=== PATIENT | female | born 1950 | race Caucasian/White ===

== ENCOUNTER 2016-10-28 13:48 | Emergency (ER) | payer OTHER ==
[~2016-10-28] VITALS: Ht 157.5 cm; Wt 93.0 kg
[~2016-10-28 13:48] MED LIST: ASPIRIN EC81 MG PO; CITALOPRAM HBR20 MG PO; DOXYCYCLINE HY100 MG PO; HYDROCODON-ACE1 EA10 PO; LIDODERM700 MG TOP; MULTI-DAY VITA1 EACH PO; OMEPRAZOLE20 MG PO; PREVACID30 MG PO; VITAMIN C500 M1 PO; VITAMIN D400 UNI1 PO; ZOFRAN ODT4 MG PO
--- NOTE | 2016-10-28 20:40 | EKG ---
[facility] [address] [facility] [place] [address] Signed Normal sinus rhythm Normal ECG No previous ECGs available Confirmed by JEN CEBALLOS MD ([id number]) on 10/28/2016 8:40:05 PM Electronically Signed By: JEN CEBALLOS MD 10/28/160 PATIENT NAME: Tati RAYMUNDO TERE Electrocardiogram DATE OF : 50 PHYSICIAN: JEN CEBALLOS MD REPORT #: [id number] REPORT IS CONFIDENTIAL AND NOT TO BE RELEASED WITHOUT AUTHORIZATION
== END 2016-10-28 17:10 | disposition home or self-care (01) ==
LOC: ED 13:48
DX: J06.9 Acute upper respiratory infection, unspecified (principal); Z85.3 Personal history of malignant neoplasm of breast; Z90.710 Acquired absence of both cervix and uterus; Z90.49 Acquired absence of other specified parts of digestive tract; Z90.89 Acquired absence of other organs; Z88.0 Allergy status to penicillin; Z88.1 Allergy status to other antibiotic agents; Z88.5 Allergy status to narcotic agent; Z88.8 Allergy status to other drugs, medicaments and biological substances; Z79.899 Other long term (current) drug therapy
CPT/HCPCS: 71020; 81001; 85025; 87088; 93005; 93010; 99284

== ENCOUNTER 2016-12-29 01:15 | Emergency (ER) | payer OTHER ==
[~2016-12-29] VITALS: Ht 157.5 cm; Wt 91.2 kg
[2016-12-29] MEDS ORDERED: DOXYCYCLINE HY100 MG PO (01:43)
== END 2016-12-29 02:30 | disposition home or self-care (01) ==
LOC: ED 01:15
DX: L02.415 Cutaneous abscess of right lower limb (principal); Z85.3 Personal history of malignant neoplasm of breast; Z85.038 Personal history of other malignant neoplasm of large intestine; Z90.49 Acquired absence of other specified parts of digestive tract; Z98.890 Other specified postprocedural states; Z88.0 Allergy status to penicillin; Z88.5 Allergy status to narcotic agent; Z79.899 Other long term (current) drug therapy
CPT/HCPCS: 99283

== ENCOUNTER 2017-04-16 20:48 | Emergency (ER) | payer OTHER ==
[~2017-04-16] VITALS: Ht 157.5 cm; Wt 91.2 kg
== END 2017-04-16 21:41 | disposition home or self-care (01) ==
LOC: ED 20:48
DX: S29.012A Strain of muscle and tendon of back wall of thorax, initial encounter (principal); Z85.3 Personal history of malignant neoplasm of breast; Z90.49 Acquired absence of other specified parts of digestive tract; Z90.710 Acquired absence of both cervix and uterus; Z90.89 Acquired absence of other organs; Z91.018 Allergy to other foods; Z88.5 Allergy status to narcotic agent; Z88.8 Allergy status to other drugs, medicaments and biological substances; Z79.899 Other long term (current) drug therapy; Z85.038 Personal history of other malignant neoplasm of large intestine; X50.0XXA Overexertion from strenuous movement or load, initial encounter
CPT/HCPCS: 71101; 99283

== ENCOUNTER 2018-07-20 06:41 | Emergency (ER) | payer OTHER ==
[~2018-07-20] VITALS: Ht 157.5 cm; Wt 93.9 kg
--- OUTSIDE RECORDS SUMMARY | ~2018-07-20 | XMS | Clinical Summary ---
Demographics + + + | Address | [address] | | | [place] [address] | + + + | Home Phone | | + + + | Preferred Language | Unknown | + + + | Marital Status | | + + + | Adventism Affiliation | Unknown | + + + | Race | Unknown | + + + | Ethnic Group | Unknown | + + + Author + + + | Author | [facility] | | | and Miguelana | + + + | Organization | [facility] | | | and Miguelana | + + + | Address | Unknown | + + + | Phone | Unavailable | + + + Support + + + + + | Name | Relationship | Address | Phone | + + + + + | Clarence Dixon | ECON | Unknown | | + + + + + | Chadwick Dixon | ECON | [address] | | | | | [place] | | | | | [address] | | + + + + + Care Team Providers + +------+ + | Care Assistant Professor Of Archaeology Name | Role | Phone | + +------+ + PP | Unavailable | + +------+ + Allergies + + + +--------+ + | Active Allergy | Reactions | Severity | Noted | Comments | | | | | Date | | + + + +--------+ + | Codeine Sulfate | | | | | + + + +--------+ + | Erythromycin Base | | | | | + + + +--------+ + | Food | | | | | + + + +--------+ + | Morphine Sulfate | | | | | + + + +--------+ + | Penicillin V | | | | | | Potassium | | | | | + + + +--------+ + | Pseudoephedrine | | | | | + + + +--------+ + | Trazodone Hcl | | | | | + + + +--------+ + | Triazolam | | | | | + + + +--------+ + | Triprolidine-Pse | | | | | + + + +--------+ + Medications + + + +---------+------+------+-------+ | Medication | Sig | Dispensed | Refills | Star | End | Statu | | | | | | t | Date | s | | | | | | Date | | | + + + +---------+------+------+-------+ | zolpidem (AMBIEN) | Take 10 mg by mouth | | 0 | 09/1 | | Activ | | 10 mg tablet | nightly as needed. | | | 3/20 | | e | | | | | | 12 | | | + + + +---------+------+------+-------+ | calcium-vitamin D | 1and1/2 tablets | | 0 | 09/1 | | Activ | | 600-400 MG-UNIT TABS | daily | | | 3/20 | | e | | | | | | 12 | | | + + + +---------+------+------+-------+ | citalopram | Take 20 mg by mouth | | 0 | 09/1 | | Activ | | (CELEXA) 20 mg | Daily. | | | 3/20 | | e | | tablet | | | | 12 | | | + + + +---------+------+------+-------+ | lansoprazole | 2 capsules daily | | 0 | 09/1 | | Activ | | (PREVACID) [address] | | | | 3/20 | | e | | capsule | | | | 12 | | | + + + +---------+------+------+-------+ | aspirin (ADULT | | | 0 | 09/1 | | Activ | | ASPIRIN EC LOW | | | | 3/20 | | e | | STRENGTH) 81 MG EC | | | | 12 | | | | tablet | | | | | | | + + + +---------+------+------+-------+ | colestipol | 2 tablets daily | | 0 | 09/1 | | Activ | | (COLESTID) 1 g | | | | 3/20 | | e | | tablet | | | | 12 | | | + + + +---------+------+------+-------+ | multivitamin | | | 0 | 09/1 | | Activ | | (THERAGRAN) per | | | | 3/20 | | e | | tablet | | | | 12 | | | + + + +---------+------+------+-------+ | | TABS | | 0 | 09/1 | | Activ | | Glucosamine-Chondroi | | | | 3/20 | | e | | tin (OSTEO BI-FLEX | | | | 12 | | | | REGULAR STRENGTH PO) | | | | | | | + + + +---------+------+------+-------+ | gabapentin | Take one cap at | | 0 | 10/2 | | Activ | | (NEURONTIN) 300 mg | bedtime for 5 days. | | | 10/24 | | e | | capsule | Increase to 3 times | | | 11 | | | | | daily as tolerated. | | | | | | + + + +---------+------+------+-------+ Active Problems + + + | Problem | Noted Date | + + + | NECK PAIN | 01/02/2011 | + + + | BACK PAIN, THORACIC REGION | 01/02/2011 | + + + | BACK PAIN, LUMBAR | 01/02/2011 | + + + | INJURY TO CUTANEOUS SENSORY NERVE LOWER LIMB | 01/02/2011 | + + + | PES ANSERINUS BURSITIS | | + + + | NECK SPRAIN AND STRAIN | | + + + | LUMBAR SPRAIN AND STRAIN | | + + + | SPONDYLOSIS, THORACIC | | + + + + + | Overview: ICD-10 Record update | + + + +---+ | KNEE PAIN | | + +---+ | DISC DISEASE, LUMBAR | | + +---+ | THORACIC/LUMBOSACRAL NEURITIS/RADICULITIS UNSPEC | | + +---+ Social History + +-------+ +--------+------+ | Tobacco Use | Types | Packs/Day | Years | Date | | | | | Used | | + +-------+ +--------+------+ | Never Assessed | | | | | + +-------+ +--------+------+ + + + | Sex Assigned at | Date Recorded | | | | + + + | Not on file | | + + + + + + + | Job Start Date | Occupation | Industry | + + + + | Not on file | Not on file | Not on file | + + + + + + + + | Travel History | Travel Start | Travel End | + + + + + + | No recent travel history available. | + + Last Filed Vital Signs + + + + | Vital Sign | Reading | Time Taken | + + + + | Blood Pressure | 122/90 | 11/08/2010 0000 PDT | + + + + | Pulse | - | - | + + + + | Temperature | - | - | + + + + | Respiratory Rate | - | - | + + + + | Oxygen Saturation | - | - | + + + + | Inhaled Oxygen | - | - | | Concentration | | | + + + + | Weight | 93 kg (205 lb) | 01/02/2011 0000 PDT | + + + + | Height | 153.7 cm (5' 0.5") | 11/08/2010 0000 PDT | + + + + | Body Mass Index | 39.38 | 11/08/2010 PDT | + + + + Plan of Treatment + + + + + | Health Maintenance | Due Date | Last Done | Comments | + + + + + | Vaccine: | | | | | Dtap/Tdap/Td (1 - | 0 | | | | Tdap) | | | | + + + + + | Vaccine: Zoster (1 | | | | | of 2) | 1 | | | + + + + + | Vaccine: | | | | | Pneumococcal 65+ | 6 | | | | Low/Medium Risk (1 | | | | | of 2 - PCV13) | | | | + + + + + | Vaccine: Influenza | | | | | (Season Ended) | 9 | | | + + + + + Results Not on filefrom Last 3 Months Insurance + +--------+ +--------+-------+---------+--------+ | Payer | Benefi | Subscriber | Effect | Phone | Address | Type | | | t Plan | ID | bobby | | | | | | / | | Dates | | | | | | Group | | | | | | + +--------+ +--------+-------+---------+--------+ | [employer] | MODA | [id number] | | | | Medica | | | HEALTH | | 014-Pr | | | re | | | MDCR | | esent | | | | + +--------+ +--------+-------+---------+--------+ + +--------+ +--------+ + + | Guarantor Name | Accoun | Relation to | Date | Phone | Billing Address | | | t Type | Patient | of | | | | | | | | | | + +--------+ +--------+ + + | Tati Nazario [place] | Person | Self | [birth year] | [address] | | | al/Fam | | 1 | [phone] | [place] [address] | | | scar | | | 4 (Home) | | + +--------+ +--------+ + +
--- OUTSIDE RECORDS SUMMARY | ~2018-07-20 | XMS | Clinical Summary ---
Demographics + + + | Address | [address] | | | [place] [address] | + + + | Home Phone | | + + + | Preferred Language | Unknown | + + + | Marital Status | | + + + | Mormon Affiliation | Unknown | + + + | Race | White | + + + | Ethnic Group | Not or | + + + Author + + + | Author | [facility] | + + + | Organization | [facility] | + + + | Address | Unknown | + + + | Phone | Unavailable | + + + Support + + + + + | Name | Relationship | Address | Phone | + + + + + | Tati Sage | ECON | [address] | | | [place] | | [place] | | | | | [address] | | + + + + + Care Team Providers + +------+ + | Care Instrument And Control Service Person Name | Role | Phone | + +------+ + PP | Unavailable | + +------+ + Source Comments [facility] and [facility] InPatient.[facility] Allergies + + + + + + | Active Allergy | Reactions | Severity | Noted | Comments | | | | | Date | | + + + + + + | Diphenhydramine-Pseu | | | 10/31/19 | | | doephed | | | 11 | | + + + + + + | Codeine | | | 10/31/19 | | | | | | 11 | | + + + + + + | Erythromycin | | | 07/28/18 | RASH | | | | | 93 | | + + + + + + | Morphine | | | 10/31/19 | | | | | | 11 | | + + + + + + | Penicillins | | | 07/28/18 | RASH | | | | | 93 | | + + + + + + | Naproxen-Pseudoephed | | | 10/31/19 | | | rine | | | 11 | | + + + + + + Current Medications + + +-------+---------+------+------+-------+ | Prescription | Sig. | Disp. | Refills | Star | End | Statu | | | | | | t | Date | s | | | | | | Date | | | + + +-------+---------+------+------+-------+ | aspirin EC | Take 81 mg by mouth | | | | | Activ | | (ASPIR-81) 81 mg | once daily. | | | | | e | | Oral Tablet, Delayed | | | | | | | | Release (E.C.) | | | | | | | + + +-------+---------+------+------+-------+ | LANSOPRAZOLE | Take by mouth. | | | | | Activ | | (PREVACID ORAL) | | | | | | e | + + +-------+---------+------+------+-------+ | ZOLPIDEM TARTRATE | Take by mouth as | | | | | Activ | | (AMBIEN ORAL) | needed. | | | | | e | + + +-------+---------+------+------+-------+ | gabapentin 100 mg | Take 100 mg by mouth | | | | | Activ | | Oral Capsule | every four hours. | | | | | e | + + +-------+---------+------+------+-------+ | MEDICATION HELP | Patient is taking | | | | | Activ | | | Hydrocodone 125 mg | | | | | e | | | every 4 hours, | | | | | | + + +-------+---------+------+------+-------+ Active Problems + + + | Problem | Noted Date | + + + | Left hip pain | 04/03/2011 | + + + | Macular puckering of retina, left eye | 11/04/2010 | + + + Family History + + +------+ + | Medical History | Relation | Name | Comments | + + +------+ + | Macular degeneration | Mother | | | + + +------+ + | Retinal detachment | Sister | | | + + +------+ + + +------+--------+ + | Relation | Name | Status | Comments | + +------+--------+ + | Mother | | | | + +------+--------+ + | Sister | | | | + +------+--------+ + Social History + +-------+ +--------+------+ | Tobacco Use | Types | Packs/Day | Years | Date | | | | | Used | | + +-------+ +--------+------+ | Never Smoker | | | | | + +-------+ +--------+------+ + +---+---+---+ | Smokeless Tobacco: | | | | | Never Used | | | | + +---+---+---+ + + + | Sex Assigned at | Date Recorded | | | | + + + | Not on file | | + + + Last Filed Vital Signs + + + + | Vital Sign | Reading | Time Taken | + + + + | Blood Pressure | 132/78 | 04/03/2011 10:45 AM PST | + + + + | Pulse | 95 | 04/03/2011 10:45 AM PST | + + + + | Temperature | 36.8 C (98.2 F) | 04/03/2011 10:45 AM PST | + + + + | Respiratory Rate | - | - | + + + + | Oxygen Saturation | - | - | + + + + | Inhaled Oxygen | - | - | | Concentration | | | + + + + | Weight | 103.9 kg (229 lb) | 04/03/2011 10:45 AM PST | + + + + | Height | 154.9 cm (5' 1") | 04/03/2011 10:45 AM PST | + + + + | Body Mass Index | 43.27 | 04/03/2011 10:45 AM PST | + + + + Plan of Treatment + + + + + | Health Maintenance | Due Date | Last Done | Comments | + + + + + | Pneumococcal (Adult) | | | | | (1 of 2 - PCV13) | 6 | | | + + + + + | Influenza (Flu) | | | | | vaccination (#1) | 8 | | | + + + + + Results Not on filefrom Last 3 Months Insurance + +--------+ +------+ + + | Payer | Benefi | Subscriber | Type | Phone | Address | | | t Plan | ID | | | | | | / | | | | | | | Group | | | | | + +--------+ +------+ + + | [employer] [place] | BLUE | [phone] | PPO | [phone] [address] [phone] [place] | | | CROSS | | | [phone] | [place] [address] | | | [employer]ER[employer] | | | | | | | L | | | | | + +--------+ +------+ + + + +--------+ +--------+ + + | Guarantor Name | Accoun | Relation to | Date | Phone | Billing Address | | | t Type | Patient | of | | | | | | | | | | + +--------+ +--------+ + + | Tati SAGE | Person | Self | [birth year] | Home: | [address] [place] [address] | | | al/Fam | | 1 | [phone] | [place] [address] | | | scar | | | [phone] | | + +--------+ +--------+ + +
--- OUTSIDE RECORDS SUMMARY | ~2018-07-20 | XMS | Clinical Summary ---
Demographics + + + | Address | [address] | | | [place] [address] | + + + | Home Phone | | + + + | Preferred Language | Unknown | + + + | Marital Status | | + + + | Pentecostalism Affiliation | Unknown | + + + [...] | Tati Sage | ECON | [address] | | | [place] | | [place] | | | | | [address] | | + + + + + Care Team Providers + +------+ + | Care Vacuum Cleaner Assembler Name | Role | Phone | + +------+ + PP | Unavailable | + +------+ + Source Comments [facility] and [facility] InPatient.[facility] Allergies + + + + + [...] | BLUE | [phone] | PPO | [phone] [address] [phone] [place] | | | CROSS | | | [phone] | [place] [address] | | | [place] | | | [...] | Self | [birth year] | Home: | [address] [place] [address] | | | al/Fam | | 1 | [phone] | [place] [address] | | | scar | | | [phone] | | + +--------+ +--------+ + +
--- OUTSIDE RECORDS SUMMARY | ~2018-07-20 | XMS | Clinical Summary ---
Demographics + + + | Address | [address] | | | [place] [address] | + + + | Home Phone | | + + + | Preferred Language | Unknown | + + + | Marital Status | | + + + | Buddhism Affiliation | Unknown | + + + | Race | Unknown | + + + | Ethnic Group | Unknown | + + + Author + + + | Author | [facility] | | | and Miguelana | + + + | Organization | [facility] | | | and Miguelana | [...] [place] | | | | | [address] | | + + + + + Care Team Providers + +------+ + | Care Charter Pilot Name | Role | Phone | + [...] | [employer] | MODA | [id number] | | | | Medica | | [...] | 1 | [phone] | [place] [address] | | | scar | | | 4 (Home) | | + +--------+ +--------+ + +
[2018-07-20] MEDS ORDERED: AMBIEN10 MG PO (07:01)
[2018-07-20] MEDS ORDERED: MUCINEX600 MG PO (07:03)
[2018-07-20] MEDS ORDERED: PROAIR HFA8.5 GM INH (07:53)
[2018-07-20] MEDS ORDERED: PREDNISONE20 MG PO (07:53)
[2018-07-20] MEDS ORDERED: DOXYCYCLINE HY100 MG PO (07:53)
[2018-07-20] MEDS ORDERED: TESSALON PERLE100 MG PO (07:53)
== END 2018-07-20 08:10 | disposition home or self-care (01) ==
LOC: ED 06:41
DX: J40 Bronchitis, not specified as acute or chronic (principal); Z88.0 Allergy status to penicillin; Z88.1 Allergy status to other antibiotic agents; Z88.5 Allergy status to narcotic agent; Z91.018 Allergy to other foods; Z79.899 Other long term (current) drug therapy; Z79.891 Long term (current) use of opiate analgesic
CPT/HCPCS: 71046; 94640; 99283-25; J1100

== ENCOUNTER 2019-10-25 05:30 | Day surgery (SDC) | payer OTHER ==
--- NOTE | 2019-10-19 17:28 | NUR ---
PATIENT SEEN TODAY ON 10/19/19 FOR LEFT TOTAL KNEE WITH HILARIA SCHEDULED ON 10/25/19. PATIENT REPORTS SHE LIVES ALONE IN A SINGLE STORY HOUSE WITH NO STAIRS INSIDE HOME. REPORTS [address] STAIR INTO HOME WITHOUT RAIL. PATIENT REPORTS SHE DOES NOT HAVE FWW OR SHOWER CHAIR, [employer] PAMPHLET AND LOAN AGREEMENT PAPERWORK PROVIDED. PATIENT STATES SHE WILL F/U WITH [employer] FOR ITEMS, ADVISED TO BRING IN FWW ON DAY OF PROCEDURE, PATIENT VERBALIZED UNDERSTANDING. PAIENT REPORTS HAVING TUB/SHOWER COMBO WITH HAND BAR AND HAND-HELD SHOWER HEAD. PATIENT STATES SHE HAD JOINT BOOT CAMP TODAY AND [facility] OUTPATIENT P/T AND HAS FIRST F/U APPOINTMENT ON 10/31 @3666. DECLINES NEED FOR HOME HEALTH OR TRANSPORATION ASSISTANCE. STATES SON WILL STAY WITH HER DURING RECOVERY PHASE AND PROVIDE TRANSPORTATION. PATIENT STATES SON AND FRIENDS WILL CONTINUE TO CHECK ON HER DURING THE FOLLOWING WEEKS OF RECOVERY.
[~2019-10-25] VITALS: Ht 157.5 cm; Wt 93.4 kg
[~2019-10-25 05:30] MED LIST changes: +AMBIEN10 MG PO; +LANSOPRAZOLE15 MG PO; +MUCINEX600 MG PO; +PREDNISONE20 MG PO; +PROAIR HFA8.5 GM INH; +TESSALON PERLE100 MG PO
[2019-10-25] MEDS ORDERED: CELECOXIB200 MG PO (08:48)
[2019-10-25] MEDS ORDERED: ASPIRIN EC325 MG PO (08:48)
[2019-10-25] MEDS ORDERED: SENNA LAX8.6 MG PO (08:49)
[2019-10-25] MEDS ORDERED: GABAPENTIN600 MG PO (08:49)
[2019-10-25] MEDS ORDERED: OXYCODONE HCL5 MG PO (08:49)
--- NOTE | 2019-10-25 09:03 | NUR ---
10/25/19 0903 Gabriel Mendoza HOB DOWN AND IVF ELEVATED AND OPEN AFTER FIRST BLOOD PRESSURE. CUFF ADJUSTED AFTER SECOND BP AND READINGS CHANGED SIGNIFICANTLY.
--- NOTE | 2019-10-25 11:55 | NUR ---
1140-HOURLY ASSESSMENT COMPLETE. PT REPORTS DECREASE IN NAUSEA AND FRESH WATER AND CRACKERS PROVIDED. PT'S SIGNIFICANT OTHER AT BEDSIDE. VSS. PT REPORTS TOLERABLE PAIN LEVEL AND REPORTS NUMBNESS AND TINGLING IN LOWER EXTREMITIES BELOW THE KNEES. POLAR ICE MACHINE ON. ARIANNA HOSE AND SCDS ON. CALL LIGHT WITHIN REACH
--- NOTE | 2019-10-25 12:17 | OR ---
[facility] [address] [place], [place] [address] Signed DATE OF OPERATION: 10/25/2019 SURGEON: Pio Lee MD PREOPERATIVE DIAGNOSIS: Degenerative joint disease, left knee. POSTOPERATIVE DIAGNOSIS: Degenerative joint disease, left knee. PROCEDURE PERFORMED: Left total knee arthroplasty with Yunier. LIMOUSINE AND HEARSE UPHOLSTERER: Nguyen Becker PA-C. Nguyen was present, critical for all portions of the procedure. ANESTHESIA: Spinal. BLOOD LOSS: 200 mL. TOURNIQUET TIME: Zero. IMPLANTS: [place] Triathlon size 3, 9 mm poly and a 29 mm patella. BRIEF HISTORY: Tati Pantoja is a 69-year-old female with progressive worsening of pain in her knee. Arthroscopy injections bracing had not relieved her pain and she wished to proceed with knee replacement. Risks and benefits of operative treatment were discussed with her and she elected to proceed. DESCRIPTION OF PROCEDURE: Once consent was obtained, she was taken to the operating room after adequate anesthesia. She was placed on operating room table, all downside pressure points were well padded. The left leg was prepped and draped in a standard sterile fashion. The leg was approached through standard anterior incision, taken through skin and Electronically Signed By: PIO LEE MD 10/25/19 1217 PATIENT NAME: Tati RAYMUNDO OPERATIVE REPORT DATE OF : 50 REPORT #: [id number] PHYSICIAN: PIO LEE MD PCP: EDITH JOSÉ MD REPORT IS CONFIDENTIAL AND NOT TO BE RELEASED WITHOUT AUTHORIZATION [facility] [address] [place], [place] [address] Signed subcutaneous tissue. A subvastus approach was taken through the capsule. The capsule and synovium were then mobilized. The knee was flexed after elevating the MCL around to the posteromedial corner. We also removed the fat pad. The anterior horns of menisci were transected, the ACL was transected. The PCL was found to be intact. The checkpoints were then placed in the femur and the tibia for the Yunier. The femoral array was then placed intra-articular. The tibial array was then placed one handsbreadth above the tibial tuberosity. The leg was then registered with the computer. All checkpoints were then registered inside the knee. The sizing configuration ligament balance was all checked using the computer and the implant. The implant tension was then adjusted. Once this was accomplished, the Yunier robot was brought in and the robot was registered. Once this was accomplished, the straight cuts were made and then switched to the angle blade and the last two cuts were made. Care was taken to protect the soft tissue throughout. Once this was accomplished, the bone pieces were all removed and the remaining osteophytes were removed. The trials were then positioned and the knee was taken through range of motion and found to be stable. The patella was cut, sized and drilled for 29 mm patella. The femoral drill holes were made and the tibia was finished using the keel punch. Her bone quality was relatively poor, so we elected to give with a hybrid implant system. The components were obtained and the tibial bone surface was pulse lavaged and packed with dry Ray-Rosita. Cement was mixed and it reached to proper consistency, it was placed on the tibia and the patella. Tibia was impacted in position first. All excess cement was removed. The polyethylene was then snapped into position and the femur was impacted. The knee was extended and nicely loaded. The patella was clamped into position again any remaining overflow was removed. The cement was allowed to harden and once hardened sufficiently, the knee was flexed and remaining overflow was removed using osteotomes. The flexion-extension ligament balancing was found to be quite good. The Yunier computer rays were then removed as were the checkpoints. The periarticular soft tissue was injected with 100 mL ropivacaine and Toradol mixture. The knee was pulse lavaged at intervals total of 3 L normal saline and iodine were used. The On-Q pain pump was then placed percutaneously in the adductor canal from the suprapatellar pouch. The arthrotomy was then closed using #2 Stratafix, subcutaneous tissue with #1 Stratafix, and the skin with ivelisse. She was dressed with a JUSTINA wound VAC dressing and Bill wrap. She tolerated the procedure well. All sponge, needle, and instrument counts were correct. Pio Lee MD BA/MODL /[id number] Electronically Signed By: PIO LEE MD 10/25/19 1217 PATIENT NAME: Tati RAYMUNDO OPERATIVE REPORT DATE OF : 50 REPORT #: [id number] PHYSICIAN: PIO LEE MD PCP: EDITH JOSÉ MD REPORT IS CONFIDENTIAL AND NOT TO BE RELEASED WITHOUT AUTHORIZATION [address] [address] Signed Copies: ~ Electronically Signed By: PIO LEE MD 10/25/19 1217 PATIENT NAME: Tati RAYMUNDO TERE OPERATIVE REPORT DATE OF : 50 REPORT #: [id number] PHYSICIAN: PIO LEE MD PCP: EDITH JOSÉ MD REPORT IS CONFIDENTIAL AND NOT TO BE RELEASED WITHOUT AUTHORIZATION
--- NOTE | 2019-10-25 13:31 | NUR ---
PT HAS GONE TO OR, FAMILY REMAIN IN RM. CONNECTED THINGS SEEM TO BE FINE. UPDATED ON VISITATION POLICY. GAVE BLESSING WILL FOLLOW
--- NOTE | 2019-10-25 14:18 | NUR ---
1000) educated on how to use IS. 1400) 2 PHYSICAL THERAPY STAFF IN ROOM WITH PATIENT
--- NOTE | 2019-10-25 14:48 | NUR ---
1415) UP TO BEDSIDE COMODE WITH HELP OF PT. 800MLS OUT. 1430)VITALS NOT DONE, PATIENT IS OFF UNIT WITH PT.
== END 2019-10-25 15:50 | disposition home or self-care (01) ==
LOC: DS 05:30
PROVIDERS: Specialist
PROC: 8E0YXBZ Computer Assisted Procedure of Lower Extremity (ICD-10-PCS; 2019-10-25)
PROC: 0SRD0J9 Replacement of Left Knee Joint with Synthetic Substitute, Cemented, Open Approach (ICD-10-PCS; principal; 2019-10-25 06:45)
DX: M16.12 Unilateral primary osteoarthritis, left hip (principal); F32.9 Major depressive disorder, single episode, unspecified; F41.9 Anxiety disorder, unspecified; K21.9 Gastro-esophageal reflux disease without esophagitis; G47.00 Insomnia, unspecified; Z79.899 Other long term (current) drug therapy; Z88.5 Allergy status to narcotic agent; Z88.0 Allergy status to penicillin; Z88.2 Allergy status to sulfonamides; Z88.1 Allergy status to other antibiotic agents; Z88.8 Allergy status to other drugs, medicaments and biological substances
CPT/HCPCS: 01400; 64447; 64450; 76942; 97110; 97116; 97161; C1713; C1776; J0690; J1100; J1885; J2001; J2250; J2405; J2704; J2795; J3010; J7040; J7121

== ENCOUNTER 2020-07-21 02:57 | Emergency (ER) | payer MEDICARE, OTHER ==
[~2020-07-21] VITALS: Ht 157.5 cm; Wt 88.5 kg
[~2020-07-21 02:57] MED LIST changes: +ASPIRIN EC325 MG PO; +CELECOXIB200 MG PO; +GABAPENTIN600 MG PO; +OXYCODONE HCL5 MG PO; +SENNA LAX8.6 MG PO
[2020-07-21] MEDS ORDERED: BETAMETHASONE D15 G3 TOP (03:23)
[2020-07-21] MEDS ORDERED: CITALOPRAM HBR40 MG PO (03:24)
--- NOTE | 2020-07-21 13:19 | EKG ---
[facility] [address] [facility] [place], [place] [address] Signed Normal sinus rhythm Left axis deviation Abnormal ECG When compared with ECG of 28-OCT-2016 14:06, No significant change was found Confirmed by CHARBEL MERLOS DO ([id number]) on 07/21/2020 1:19:03 PM Electronically Signed By: CHARBEL MERLOS DO 07/21/20 1319 PATIENT NAME: Tati RAYMUNDO TERE Electrocardiogram DATE OF : 50 PHYSICIAN: CHARBEL MERLOS DO REPORT #: [id number] REPORT IS CONFIDENTIAL AND NOT TO BE RELEASED WITHOUT AUTHORIZATION
== END 2020-07-21 05:45 | disposition home or self-care (01) ==
LOC: ED 02:57
DX: R07.9 Chest pain, unspecified (principal); Z85.038 Personal history of other malignant neoplasm of large intestine; Z79.899 Other long term (current) drug therapy; Z91.018 Allergy to other foods; Z88.0 Allergy status to penicillin; Z91.048 Other nonmedicinal substance allergy status; Z88.5 Allergy status to narcotic agent; Z79.82 Long term (current) use of aspirin
CPT/HCPCS: 71045; 71260; 80053; 83735; 84484; 85025; 93005; 93010; 99285-25; Q9967

== ENCOUNTER 2021-06-23 15:10 | Emergency (ER) | payer MEDICARE, OTHER ==
[~2021-06-23] VITALS: Ht 157.5 cm; Wt 88.5 kg
[~2021-06-23 15:10] MED LIST changes: +BETAMETHASONE D15 G3 TOP; +CITALOPRAM HBR40 MG PO
[2021-06-23] MEDS ORDERED: OMEPRAZOLE20 MG PO (15:59)
== END 2021-06-23 19:59 | disposition home or self-care (01) ==
LOC: ED 15:10
DX: S02.2XXA Fracture of nasal bones, initial encounter for closed fracture (principal); S01.21XA Laceration without foreign body of nose, initial encounter; Z85.038 Personal history of other malignant neoplasm of large intestine; Z91.010 Allergy to peanuts; Z88.0 Allergy status to penicillin; Z88.5 Allergy status to narcotic agent; Z88.1 Allergy status to other antibiotic agents; Z91.048 Other nonmedicinal substance allergy status; Z88.8 Allergy status to other drugs, medicaments and biological substances; Z79.899 Other long term (current) drug therapy; W18.30XA Fall on same level, unspecified, initial encounter; W22.8XXA Striking against or struck by other objects, initial encounter
CPT/HCPCS: 12013; 70450; 70486; 72125; 73030; 73080; 99284-25; A9270; J2405; J3010; J7121

== ENCOUNTER 2022-06-03 07:08 | Emergency (ER) | payer MEDICARE, OTHER ==
[~2022-06-03] VITALS: Ht 157.5 cm; Wt 88.5 kg
[2022-06-03] MEDS ORDERED: CHILDREN'S ASPI81 M1 PO (07:25)
== END 2022-06-03 09:27 | disposition home or self-care (01) ==
LOC: ED 07:08
DX: K59.03 Drug induced constipation (principal); T40.2X5A Adverse effect of other opioids, initial encounter; Z88.8 Allergy status to other drugs, medicaments and biological substances; Z88.0 Allergy status to penicillin; Z88.1 Allergy status to other antibiotic agents; Z91.048 Other nonmedicinal substance allergy status; Z91.018 Allergy to other foods; Z88.5 Allergy status to narcotic agent; Z79.899 Other long term (current) drug therapy; Z79.82 Long term (current) use of aspirin
CPT/HCPCS: 99283; A9270

== ENCOUNTER 2023-12-05 02:52 | Emergency (ER) | payer MEDICARE, OTHER ==
[~2023-12-05] VITALS: Ht 157.5 cm; Wt 97.9 kg
[~2023-12-05 02:52] MED LIST changes: +CHILDREN'S ASPI81 M1 PO; +LEVOTHYROXINE50 MC1 PO
[2023-12-05 03:28] LABS: BASOPHILS 0.7 % (0-2); EOSINOPHILS 4.4 % (0-6); HEMATOCRIT 43.4 % (35.0-50.0); HEMOGLOBIN 14.6 g/dL (12.0-18.0); LYMPHOCYTES 13.5 % (24-44); MCHC 33.6 g/dl (30-36); MCV 86.2 fl (81-99); MONOCYTES 9.3 % (0-12); NEUTROPHILS 72.1 % (39-80); PLATELET COUNT 149 K/uL (140-440); RBC 5.03 M/ul (4.3-5.7); RDW 14.6 (10.5-15.0)
[2023-12-05 03:49] LABS: ALBUMIN 3.6 g/dL (3.4-5.0); ALBUMIN/GLOBULIN RATIO 0.92 (1.1-2.4); ANION GAP 14.2 (7-21); BILIRUBIN, TOTAL 0.5 ng/dL (0.2-1.0); BUN/CREATININE RATIO 13.69 (6.0-28.6); CALCIUM 8.7 mg/dL (8.5-10.1); CREATININE, SERUM 0.73 mg/dL (0.55-1.02); POTASSIUM 4.2 mmol/L (3.5-5.1); PROTEIN, TOTAL 7.5 g/dL (6.4-8.2)
[2023-12-05] MEDS ORDERED: ALBUTEROL SULFATE 8 GM HOME.PACK INH ONE (04:15)
[2023-12-05] MEDS ORDERED: INHALER, ASSIST DEVICES 1 EACH SPACER MISC ONE (04:15)
[2023-12-05 04:21] VITALS: BP 122/61
--- NOTE | 2023-12-05 14:52 | EKG ---
[facility] [address] [facility] [place] [address] Signed Normal sinus rhythm Left axis deviation Abnormal ECG When compared with ECG of 10-JUL-2023 10:43, No significant change was found Confirmed by Tonya Velasco MD () on 12/05/2023 2:52:41 PM Electronically Signed By: TONYA VELASCO MD 12/05/23 1452 PATIENT NAME: Tati PINTO Electrocardiogram DATE OF : 50 PHYSICIAN: TONYA VELASCO MD REPORT #: [id number] REPORT IS CONFIDENTIAL AND NOT TO BE RELEASED WITHOUT AUTHORIZATION
== END 2023-12-05 04:26 | disposition home or self-care (01) ==
LOC: ED 02:52
PROVIDERS: Internal Medicine
DX: J06.9 Acute upper respiratory infection, unspecified (principal); Z85.038 Personal history of other malignant neoplasm of large intestine; Z85.028 Personal history of other malignant neoplasm of stomach; Z90.49 Acquired absence of other specified parts of digestive tract; Z90.710 Acquired absence of both cervix and uterus; Z90.79 Acquired absence of other genital organ(s); Z88.0 Allergy status to penicillin; Z88.5 Allergy status to narcotic agent; Z88.6 Allergy status to analgesic agent; Z88.2 Allergy status to sulfonamides; Z88.1 Allergy status to other antibiotic agents; Z91.018 Allergy to other foods; Z88.8 Allergy status to other drugs, medicaments and biological substances; Z91.048 Other nonmedicinal substance allergy status; Z79.82 Long term (current) use of aspirin; Z79.890 Hormone replacement therapy; Z79.899 Other long term (current) drug therapy
CPT/HCPCS: 36415; 71045; 80053; 83880; 84484; 85025; 85379; 93005; 93010; 99285-25; U0002

== ENCOUNTER 2024-03-17 15:01 | Inpatient (IN) | payer MEDICARE, OTHER ==
[~2024-03-17] VITALS: Ht 157.5 cm; Wt 82.2 kg
[~2024-03-17 15:01] MED LIST changes: +PREVACID 24HR15 MG PO
[2024-03-17] MEDS ORDERED: LOPERAMIDE HCL 2 MG CAP PO ONE (15:30)
[2024-03-17] MEDS ORDERED: ondansetron HCL 4 MG/2 ML VIAL IV ONE (15:30)
[2024-03-17] MEDS ORDERED: SODIUM CHLORIDE 0.9% 1,000 ML IV ONE (15:30)
[2024-03-17 15:39] LABS: HEMOGLOBIN 16.8 g/dL (12.0-18.0); RDW 14.7 (10.5-15.0)
[2024-03-17 15:42] LABS: BASOPHILS 0.4 % (0-2); EOSINOPHILS 2.6 % (0-6); HEMATOCRIT 50.3 % (35.0-50.0); LYMPHOCYTES 22.9 % (24-44); MCH 29.2 (27-36); MCHC 33.4 g/dl (30-36); MCV 87.3 fl (81-99); MONOCYTES 8.2 % (0-12); NEUTROPHILS 65.9 % (39-80); PLATELET COUNT 182 K/uL (140-440); RBC 5.76 M/ul (4.3-5.7)
[2024-03-17 15:57] LABS: ALBUMIN/GLOBULIN RATIO 0.95 (1.1-2.4); ANION GAP 14.9 (7-21); BILIRUBIN, TOTAL 0.6 ng/dL (0.2-1.0); BUN/CREATININE RATIO 20.68 (6.0-28.6); CALCIUM 9.1 mg/dL (8.5-10.1); CREATININE, SERUM 0.87 mg/dL (0.55-1.02); POTASSIUM 3.9 mmol/L (3.5-5.1); PROTEIN, TOTAL 8.2 g/dL (6.4-8.2)
[2024-03-17] MEDS ORDERED: PANTOPRAZOLE SODIUM 40 MG/10 ML VIAL IV SCH ×2 (17:11→19:23)
[2024-03-17] MEDS ORDERED: ondansetron HCL 4 MG/2 ML VIAL IV PRN ×2 (17:15→19:30)
[2024-03-17] MEDS ORDERED: SODIUM CHLORIDE 0.9% 1,000 ML IV SCH (17:15)
[2024-03-17] MEDS ORDERED: ACETAMINOPHEN 650 MG SUPP PR PRN (17:15)
[2024-03-17] MEDS ORDERED: PROCHLORPERAZINE EDISYLATE 10 MG/2 ML VIAL IV PRN ×2 (17:15→19:30)
[2024-03-17] MEDS ORDERED: DEXTROSE 5% - LACTATED RINGERS 1,000 ML IV SCH ×2 (17:15→19:30)
[2024-03-17] MEDS ORDERED: ACETAMINOPHEN 325 MG TAB PO PRN (17:15)
[2024-03-17 17:59] VITALS: BP 132/57
--- NOTE | 2024-03-17 18:36 | NUR ---
PATIENT ADMITTED TO MED SURG. D5LR IS INFUSING TO LEFT ARM @ 125ML/HR. 2.5MG OF IV COMPAZINE GIVEN FOR NAUSEA. FAMILY IS IN ROOM WITH PATIENT. DR. ROCKWELL IS HERE AND WILL SEE PATIENT SOON.
--- NOTE | 2024-03-17 19:19 | NUR ---
REPORT RECIEVED FROM DAY SHIFT RN. PATIENT RESTING IN BED. DENIES NEEDS AT THIS TIME. CALL LIGHT IN REACH.
[2024-03-17 19:20] LABS: BILIRUBIN, URINE NEGATIVE (negative); BLOOD/HGB, URINE NEGATIVE (Negative); KETONE, URINE NEGATIVE (Negative); LEUK ESTERASE, URINE NEGATIVE (negative); NITRITE, URINE NEGATIVE (negative)
[2024-03-17] MEDS ORDERED: ENOXAPARIN SODIUM 40 MG/0.4 ML SYR SUB-Q SCH (19:22)
--- NOTE | 2024-03-17 19:27 | NUR ---
PATIENT RESTING IN BED. IV FLUSHES WNL. PATIENT ASSESSMENT COMPLETE. NO FURTHER NEEDS. CALL LIGHT IN REACH.
[2024-03-17] MEDS ORDERED: ACETAMINOPHEN 500 MG TAB PO PRN (19:30)
[2024-03-17] MEDS ORDERED: HYDROmorphone HCL 1 MG/ML SYR IV PRN (19:30)
[2024-03-17 19:52] VITALS: BP 102/62
--- NOTE | 2024-03-17 19:56 | NUR ---
PATIENT RESTING IN BED. PATIENT UP TO BATHROOM TO VOID. PATIENT BACK TO BED. SCHEDULED MEDICATION ADMINISTERED. VS AND I&Os OBAINED AND RECORDED. PATIENT EDUCATED TO ROOM AND CALL LIGHT. PATIENT VERBILIZES UNDERSTANDING. NO FURTHER NEEDS. CALL LIGHT IN REACH.
--- NOTE | 2024-03-17 22:10 | NUR ---
PATIENT RESTING IN BED. PATIENT DENIES NEEDS AT THIS TIME. CALL LIGHT IN REACH. BED ALARM ON.
--- NOTE | 2024-03-17 23:27 | NUR ---
CALL LIGHT ANSWERED. PATIENT UP TO BATHROOM TO VOID. PATIENT BACK TO BED. NO FURTHER NEEDS AT THIS TIME. CALL LIGHT IN REACH. BED ALARM ON.
[2024-03-18] VITALS (11 sets, daily range): BP systolic 107–147; BP diastolic 52–65
--- NOTE | 2024-03-18 01:57 | NUR ---
PT ASSISTED TO BR, PT SBA TO BR FOR IV POLE HELP. VSS. SCD'S APPLIED. NO OTHER NEEDS AT THIS TIME.
--- NOTE | 2024-03-18 02:15 | NUR ---
PATIENT RESTING IN BED. NEW BAG IV FLUID INFUSING PER ORDER. NO FURTHER NEEDS. CALL LIGHT IN REACH.
--- NOTE | 2024-03-18 04:08 | NUR ---
PATIENT RESTING IN BED ON BACK WITH EYES CLOSED. RESPIRATIONS EVEN AND UNLABORED. CALL LIGHT IN REACH.
[2024-03-18 05:24] LABS: BASOPHILS 0.5 % (0-2); EOSINOPHILS 3.5 % (0-6); HEMOGLOBIN 13.7 g/dL (12.0-18.0); MCH 29.4 (27-36); MCHC 34.1 g/dl (30-36); MONOCYTES 11.1 % (0-12); NEUTROPHILS 59.9 % (39-80); PLATELET COUNT 120 K/uL (140-440); RBC 4.65 M/ul (4.3-5.7); RDW 14.4 (10.5-15.0)
[2024-03-18 05:37] LABS: ANION GAP 11.1 (7-21); CALCIUM 8.7 mg/dL (8.5-10.1); CREATININE, SERUM 0.8 mg/dL (0.55-1.02); MAGNESIUM 1.8 mg/dL (1.8-2.4); PHOSPHORUS, INORGANIC 3.5 mg/dL (2.5-4.9); POTASSIUM 4.1 mmol/L (3.5-5.1)
--- NOTE | 2024-03-18 05:55 | NUR ---
VS AND I&Os OBTAINED AND RECORDED. ASSESSMENT COMPLETE. PATIENT STATES HER ABD IS NOT PAINFUL BUT SHE DOES "FEEL LIKE SHE MIGHT THROW UP". SCHEDULED MEDICATION ADMINISTERED AND PRN NAUSEA MEDICATION ADMINISTERED. PATIENT DENIES FURTHER NEEDS AT THIS TIME. CALL LIGHT IN REACH. BED ALARM ON.
--- NOTE | 2024-03-18 06:12 | CONS ---
[facility] [address] [place], [place] [address] Signed DATE OF CONSULTATION: 03/17/2024 CHIEF COMPLAINT: Diarrhea. HISTORY OF PRESENT ILLNESS: Tati Pantoja is a 73-year-old female who I helped with upper and lower endoscopy earlier this year. She has been through a previous vertical-banded gastroplasty many years ago, which she said was completely unsuccessful. She is known to have acid reflux and often has epigastric abdominal pain. She has a personal history of adenomatous polyps. Her father had colon cancer at age 85. Her brother also has a history of colonic polyps. She often has alternating constipation and diarrhea. After her cholecystectomy. She told me Dr. Fagan helped her with an open sigmoid resection for neurofibromas back in 1994 at the age of 44. She now has a Humphrey side-to-end colorectal anastomosis. I had confirmed her gastric anatomy along with a small hiatal hernia. She also had some small polyps as well. In the last five days, she started to have generalized abdominal pain with diarrhea every 15 minutes. She tried Pepto-Bismol three days ago and it turned her stool black. It did not help the diarrhea. Her son tells me he just went through the same thing and it took about a week to get through it. Tati Pantoja was feeling weak and fatigued, so she came to the emergency room with her family. She has been evaluated by Dr. Leon. Her vital signs are stable. Blood work was not particularly concerning. She said the AST and ALT were always a little up from the sarcoidosis that affected her liver. That is well documented in the past. The CT scan did show a little bit of irregularity to the liver contour. She does have what appears to be a supraumbilical ventral hernia where the transverse colon is coming underneath. There appears to be some air fluid levels in that proximal transverse colon and then the distal portion is more decompressed with a mild thickened area along about 2.7 cm. She also has a small umbilical hernia. I have been asked to admit her as a general surgeon on-call. She has been given some IV fluids and tells me she is still feeling dehydrated and tired. Her family is with her including her son, her and another individual, who I believe is her friend. 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 She had paroxysmal supraventricular tachycardia. 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 Also, hypothyroidism. PAST SURGICAL HISTORY: Includes her neck surgery with titanium remaining in her neck. She has had a hysterectomy. She had a cholecystectomy, appendectomy, tonsillectomy. She has had an open sigmoid resection in [address] age of [address] Fagan for neurofibromas. She has had Eleazar vertical-banded gastroplasty and stapling. She has had left shoulder surgery without any metal. She had a right wrist surgery without any metal. She had her left Electronically Signed By: WOODY ROCKWELL MD 03/18/2412 PATIENT NAME: Tati PINTO CONSULTATION DATE OF : 50 REPORT #: [id number] PHYSICIAN: WOODY ROCKWELL MD PCP: BRE JUNG MD REPORT IS CONFIDENTIAL AND NOT TO BE RELEASED WITHOUT AUTHORIZATION [facility] [address] [place] [id number] Signed knee replaced a few years ago with Dr. Lee. I helped with upper lower endoscopy in 2023. SOCIAL HISTORY: She does not smoke or drink. Dr. Jung is her primary care provider. She prefers the [facility]. She is to [place] at [phone]. Her son is Chadwick Dixon and he is her contact percent at [phone]. She also has an adopted daughter. FAMILY HISTORY: Mom had heart issues. Dad had gastric cancer. REVIEW OF SYSTEMS: She had 10 systems reviewed and she did confirm the sarcoidosis. ALLERGIES: Erythromycin based Bactrim, tape, diclofenac, trazodone, pseudoephedrine, triprolidine, penicillin, macrolides, triazolam, morphine and codeine. MEDICATIONS: Citalopram, omeprazole and levothyroxine 50 mcg p.o. daily. PHYSICAL EXAMINATION: VITAL SIGNS: Blood pressure is 132/57, heart rate 62, respiratory rate 18, temperature is 97.7 she is 98% on room air. She is 5 feet 2 inches tall, 82 kg with a body mass index of 33. GENERAL: Tati Pantoja is a 73-year-old female lying supine in her hospital bed with her family in the room. She appears tired and fatigued, but in no acute distress. LUNGS: Clear to auscultation bilaterally. HEART: Regular rate and rhythm without murmur. ABDOMEN: Obese, but soft and amazingly, we cannot appreciate a midline supraumbilical ventral hernia. We cannot appreciate any mass nor a fascial edge. LABORATORY DATA: Her white blood count 5.9, hemoglobin 16, neutrophils 65, platelets 182 BUN 18, creatinine 0.87, total bilirubin 0.6, AST up a little at 53, ALT up a little at 63, alkaline phosphatase normal at 110, albumin is 4, lipase is 32. Her urinalysis pending because she has not been able to give a urine sample. RADIOGRAPHIC STUDIES: The CT scan and pelvis is reviewed both the report and the images. She has some mild irregularity to the contour of the liver. She has what looks like a supraumbilical ventral hernia containing the transverse colon with some air-fluid levels proximally then decompressed distally with a mild area thickening about 2.7 cm in length. She also has a small umbilical hernia. Electronically Signed By: WOODY ROCKWELL MD 03/18/24 0612 PATIENT NAME: Tati PINTO CONSULTATION DATE OF : 50 REPORT #: [id number] PHYSICIAN: WOODY ROCKWELL MD PCP: BRE JUNG MD REPORT IS CONFIDENTIAL AND NOT TO BE RELEASED WITHOUT AUTHORIZATION [facility] [address] [place], [place] [address] Signed ASSESSMENT AND PLAN: Tati Pantoja is a 73-year-old female who presents with what looks like a viral gastroenteritis that her son had just gotten over after about a week. She certainly has had lots of diarrhea and dehydration and is feeling fatigued. She has a chronic ventral hernia that may or may not be giving her some level of a bowel obstruction based on the CT scan. However, the physical exam is quite benign. At this point, we are going to admit her, give her IV fluids, let her have some ice chips and repeat the labs in the morning. I have reviewed this with Tati Pantoja and her family. They have expressed understanding, agreed to the above plan. Woody Rockwell MD ALB/MODL /[id number] cc: Woody Rockwell MD Patient chart Dr. Bre Jung Copies: WOODY ROCKWELL MD ~ Electronically Signed By: WOODY ROCKWELL MD 03/18/24611 PATIENT NAME: Tati PINTO TERE ZACKARY CONSULTATION DATE OF : 50 REPORT #: [id number] PHYSICIAN: WOODY ROCKWELL MD PCP: BRE JUNG MD REPORT IS CONFIDENTIAL AND NOT TO BE RELEASED WITHOUT AUTHORIZATION
[2024-03-18] MEDS ORDERED: MAGNESIUM SULFATE 2 GM/50 ML BAG IV ONE (06:30)
[2024-03-18] MEDS ORDERED: LEVOTHYROXINE SODIUM 50 MCG TAB PO SCH (07:00)
--- NOTE | 2024-03-18 07:20 | NUR ---
REPORT RECEIVED FROM NAY IBARRA. PT RESTING IN BED, AWAKE AND ALERT ON PHONE. NO REQUESTS AT THIS TIME. CALL LIGHT IN REACH.
--- NOTE | 2024-03-18 07:37 | NUR ---
DID HRLY ROUNDING ON PT. UPDATED BORAD PT DIDNT NEED ANYTHING ELSE AND CALL LIGHT IS WITHIN REACH.
--- NOTE | 2024-03-18 07:39 | NUR ---
UR CLINICAL REVIEW: 2MN MONTY, MEETS INPT FOR SMALL BOWEL OBSTRUCTION MEDICARE INPT 03/17/24 @ 1712 ORDER MATCHES REG NO AUTH REQUIRED PER MEDICARE RULES PLAN TO DC TO HOME WHEN STABLE.
--- NOTE | 2024-03-18 08:05 | NUR ---
ASSESSMENT COMPLETE. MEDICATION ADMINISTERED. PT RESTING IN BED AWAKE. LUNG SOUNDS CLEAR THROUGHOUT, HEART SOUNDS HEARD REGULAR/REGULAR. BOWEL TONES ACTIVE IN ALL FOUR QUADRANTS, PT REPORTS NO TENDERNESS TO PALPATION, NO NAUSEA WITH CLEAR LIQUID ORAL INTAKE STARTED THIS AM. PULSES 2+ IN ALL FOUR EXTREMETIES, NO NUMBNESS OR TINGLING REPORTED. SCARS NOTED TO ABDOMEN, L KNEE AND SHOULDER. PT REPORTS HX OF 3-4 FALLS THE PAST FEW YEARS BECAUSE HER L KNEE WILL "JUST GIVE OUT". CURRENTLY REPORTING NO PAIN. IV TO L FOREARM FLUSHES WNL, IVF INFUSING WNL. PT AMBULATES TO RECLINER WITH SBA ONLY, BLE ELEVATED ON A PILLOW AND WARM BLANKET PROVIDED. FRESH LINEN APPLIED TO BED AT THIS TIME. BREAKFAST TRAY ARRIVES. PT HAS NO OTHER NEEDS AT THIS TIME, CALL LIGHT IN LAP.
[2024-03-18] MEDS ORDERED: PANTOPRAZOLE SODIUM 40 MG TABEC PO SCH (09:00)
[2024-03-18] MEDS ORDERED: LEVOTHYROXINE50 MCG PO (09:06)
--- NOTE | 2024-03-18 09:07 | NUR ---
ALERT AND ORIENTED IN RECLINER. LIVES IN SINGLE LEVEL HOME, 3 STEPS TO GET IN WITH [place], WITH HER . STATES SHE HAS A WALKER AND CANE, BUT DOES NOT USE THEM THEY ARE FROM A PREVIOUS KNEE PROCEDURE. SHE DRIVES. SHE HAS NO FINANIAL ISSUES. SHE IS ABLE TO PAY FOR UTILITIES AND OBTAIN FOOD AND MEDICATIONS WITHOUT ISSUES. STATES SHE HAS NO KNOWN NEEDS AT THIS TIME BUT WILL NOTIFY STAFF WITH CHANGES.
--- NOTE | 2024-03-18 09:10 | NUR ---
MED REC COMPLETE
--- NOTE | 2024-03-18 09:15 | NUR ---
BREKFAST TRAY REMOVED. PT AMBULATES TO RESTROOM. PT WALKS ONE LAP IN HALLS WITH MARILU LANDIS.
--- NOTE | 2024-03-18 09:29 | NUR ---
PT USED RESTROOM AND VOIDED. IT WAS CHARTED. PT WANTED TO GO ON A WALK WE DID ONE LAP AROUND THE NURSING STATION AND PT SAID SHE WANTED TO GO BACK TO HER ROOM AND SAID SHE KNOWS SHE NEEDS TO WALK AT LEAST 4 TIMES TODAY. TOOK PT VITALS AND CHARTED THEM. PT DIDNT NEED ANYTHING ELSE AND CALL LIGHT IS WITHIN REACH.
--- NOTE | 2024-03-18 10:13 | NUR ---
PT UP IN RECLINER RESTING. FRESH ICE WATER PROVIDED BY MARILU LANDIS. NO OTHER NEEDS AT THIS TIME.
--- NOTE | 2024-03-18 11:00 | NUR ---
VISITED DURING SPIRITUAL CARE ROUNDS. PT APPEARED TO BE SLEEPING. DID NOT DISTURB. PROVIDED PRAYER.
--- NOTE | 2024-03-18 11:45 | NUR ---
PT UP IN RECLINER WITH BLE ELEVATED. PT COMPLAINS OF TENDERNESS AND REDNESS TO L FOREARM IV SITE. NEW IV PLACED IN R FOREARM. PT TOLERATES WELL. STUDENT NURSE GETS FRESH ICE WATER. PT RESTING IN RECLINER, CALL LIGHT IN REACH.
--- NOTE | 2024-03-18 12:37 | NUR ---
PT ASSISTED TO RESTROOM WITH MARILU LANDIS.
--- NOTE | 2024-03-18 13:45 | NUR ---
PT REPORTING "CRAMPY" FEELING IN HER LOWER ABDOMEN AND LOW BACK PAIN. HEAT PACK PROVIDED, PRN NAUSEA MEDICATION ADMINISTERED PER JUN. PT RESTING IN BED WATCHING TELEVISION AT THIS TIME.
--- NOTE | 2024-03-18 14:30 | NUR ---
PT RESTING IN BED, AWAKE AND WATCHING TELEVISION. PT AT BEDSIDE. PT REPORTS HER NAUSEA IS GONE AND THE HEAT PAD HELPED HER CRAMPING PAIN. NO OTHER NEEDS AT THIS TIME, CALL LIGHT IN REACH.
--- NOTE | 2024-03-18 15:34 | NUR ---
PT AMBULATES TWO LAPS IN [place] WITH . STOOL AT THIS TIME HAS A NEGATIVE HEMOCCULT TEST. CHARGE NURSE JOSEFINA PHILLIPS. NO OTHER NEEDS AT THIS TIME, CALL LIGHT IN REACH.
--- NOTE | 2024-03-18 15:55 | NUR ---
SECOND ASSESSMENT COMPLETE. PT COMPLAINS OF ABDOMINAL CRAMPING AND ACHE AND HER NAUSEA HAS RETURNED. TWO HEAT PACKS AND A WARM BLANKET PROVIDED TO WRAP AROUND HER ABDOMEN, PT REPORTS THIS HELPED HER EARLIER. PRESENT AT BEDSIDE. PT REPORTS ABDOMINAL PAIN IS A 4/10, DOES NOT WANT PHARMALOGICAL INTERVENTION AT THIS TIME. IV FLUSHES WNL. NO OTHER REQUESTS AT THIS TIME, CALL LIGHT IN REACH.
--- NOTE | 2024-03-18 17:22 | NUR ---
PATIENT ASSISTED TO BATHROOM. VOID AND LIQUID BM NOTED. PATIENT ASSISTED BACK INTO BED. DINNER TRAY SET UP FOR PATIENT. NO FURTHER NEEDS CALL LIGHT WITHIN REACH.
[2024-03-18] MEDS ORDERED: CITALOPRAM HYDROBROMIDE 20 MG TAB PO SCH (18:00)
--- NOTE | 2024-03-18 19:30 | NUR ---
SHIFT REPORT RECEIVED FROM DAYSHIFT NAY HOPE. pt AWAKE AND RESTING IN BED WATCHING TV, FAMILY IN ROOM. pt PLEASANT AND INTERACTIVE WITH STAFF. NEW BAG IV FLUIDS HUNG AND INFUSING DIRECTED. SMALL PORTION OF IV CATHETER TUBING VISIBLE. NO LEAKING NOTED FROM IV SITE, pt REPORTS NO PAIN. NO FURTHER NEEDS, CALL LIGHT IN REACH.
--- NOTE | 2024-03-18 19:41 | NUR ---
RN attempted to place iv in lfa. As soon as the needle went into the skin pt began to yell "That hurts too much! You"re done!" RN encourage pt to breath so that she may advance the catheter in to the vein. Pt repeats "You're done!" IV withdrawn and site covered with gauze and tape. primary rn notified.
--- NOTE | 2024-03-18 20:30 | NUR ---
CALL LIGHT ANSWERED. PT NEEDED TO USE BATHROOM. NUTRITION EDUCATOR SBA TO BATHROOM. PT VOIDED AND STATED SHE WOULD LIKE TO WALK. PT AMBULATED SBA WITH FOR 2 LAPS AROUND UNIT. PT NOW BACK IN BED. NUTRITION EDUCATOR OBTAINED AND DOCUMENTED VITALS AND I&O. PT ICE WATER REFILLED. PT STATES NO FURTHER NEEDS AT THIS TIME. CALL LIGHT WITHIN REACH AND FAMILY IN ROOM.
--- NOTE | 2024-03-18 21:09 | NUR ---
ROUNDED ON pt, pt AWAKE AND REPORTS RECENTLY AMBULATING IN HALLWAY X2. A/OX4, DENIES NEEDS OR CONCERNS. CALL LIGHT IN REACH. FAMILY REMAINS IN ROOM.
--- NOTE | 2024-03-18 21:33 | NUR ---
ASSESSMENT COMPLETE, NO SCHEDULED MEDS. CONTINUOUS IV FLUIDS TO IV SITE, BRISK BLOOD RETURN NOTED. pt REPROTS PAIN IS MANAGABLE, RATES AT 3-4/10, DENIES NEED FOR BOTH PHARMACOLOGICAL AND NONPHARMACOLOGICAL INTERVENTIONS. CMS INTACT, SCDS TO BLE TOLERATED. ACTIVE BOWEL TONES, pt DENIES NAUSEA. NO FURTHER NEEDS OR CONCERNS, CALL LIGHT IN REACH.
--- NOTE | 2024-03-18 22:09 | NUR ---
CALL LIGHT ANSWERED. PT NEEDED TO USE BATHROOM. PLANT WORKER SBA TO BAHOOM. PT VOIDED AND IS NOW BACK IN BED. OUTPUT MEASURED AND HAT EMPTIED. PT STATES NO FURTHER NEEDS AT THIS TIME. CALL LIGHT WITHIN REACH
--- NOTE | 2024-03-18 23:00 | NUR ---
rounded on pt, pt awake and resting in bed, watching tv. warm blankets provided to put over abd x2 per pt request, pt denies needs for pain or nausea meds, call light in reach.
--- NOTE | 2024-03-18 23:35 | NUR ---
CALL LIGHT ANSWERED. PT NEEDED TO USE BATHROOM. PRESS SET UP SBA TO BATHROOM. PT VOIDED AND ASSISTED BACK TO BED. PT OUTPUT MEASURED AND HAT EMTPIED. PT STATES NO FURTHER NEEDS AT THIS TIME. CALL LIGHT WITHIN REACH.
--- NOTE | 2024-03-19 00:43 | NUR ---
ROUNDED ON pt, pt AWAKE AND RESTING IN BED. STRANDING MACHINE OPERATOR HELPER TO ASSIST pt TO BATHROOM. IV SITE REMAINS UNCHANGED, IV FLUIDS INFUSING DIRECTED. CALL LIGHT IN REACH.
--- NOTE | 2024-03-19 00:49 | NUR ---
PT NEEDED TO USE BATHROOM. LABORATORY MACHINIST SBA TO BATHROOM. PT VOIDED AND ASSISTED BACK TO BED. PT OUTPUT MEASURED AND HAT EMTPIED. PT ICE WATER REFILLED. PT STATES NO FURTHER NEEDS AT THIS TIME. CALL LIGHT WITHIN REACH.
--- NOTE | 2024-03-19 01:30 | NUR ---
rounded on pt, pt awake and resting in bed, laying partially on left side. iv site unchanged, fluids infusing wnl. warm blanket provided d/t abd pain, pt continues to decline prn pain medication. call light in reach.
--- NOTE | 2024-03-19 02:09 | NUR ---
prn pain medication given for reported 8/10 abd pain-see emar. warm pack provided, pt up sba to void and back in bed prior to pain medication administration. pt verbalizes understanding to use call light before getting oob d/t side effects of pain medication. iv site unchanged, brisk blood return noted and iv site flushes wnl, fluids continue to infuse as directed. call light in reach, no acute changes to focused assessment.
--- NOTE | 2024-03-19 02:58 | NUR ---
reassessed pain following prn pain medication administration, pt reports pain is "much better", now rates at 2/10. denies additional needs or concerns, call light in reach.
--- NOTE | 2024-03-19 04:11 | NUR ---
rounded on pt, pt resting in bed, laying somewhat on left side. on ra, rr even and unlabored. call light in reach.
[2024-03-19 05:30] LABS: BASOPHILS 0.5 % (0-2); EOSINOPHILS 4.2 % (0-6); HEMATOCRIT 38.3 % (35.0-50.0); LYMPHOCYTES 25.2 % (24-44); MCH 29.3 (27-36); MCV 86.3 fl (81-99); MONOCYTES 10.1 % (0-12); PLATELET COUNT 120 K/uL (140-440); RBC 4.44 M/ul (4.3-5.7); RDW 14.6 (10.5-15.0)
[2024-03-19 05:33] VITALS: BP 143/57
[2024-03-19 05:43] LABS: ANION GAP 11.5 (7-21); BUN/CREATININE RATIO 4.34 (6.0-28.6); CREATININE, SERUM 0.69 mg/dL (0.55-1.02); MAGNESIUM 1.8 mg/dL (1.8-2.4); PHOSPHORUS, INORGANIC 3.1 mg/dL (2.5-4.9); POTASSIUM 3.5 mmol/L (3.5-5.1)
--- NOTE | 2024-03-19 05:43 | NUR ---
CALL LIGHT ANSWERED. PT NEEDED TO USE BATHROOM. BOX BRANDER SBA TO BATHROOM. PT VOIDED AND ASSISTED BACK TO BED. OUTPUT MEAUSRED AND HAT EMPTIED. BOX BRANDER OBTAINED VITALS AND I&O. PT ICE WATER REFILLED. PT STATES NO FURTHER NEEDS AT THIS TIME. CALL LIGHT WITHIN REACH.
--- NOTE | 2024-03-19 06:29 | NUR ---
ROUNDED ON pt, pt AWAKE AND RESTING IN BED. ON RA, RR EVEN AND UNLABORED. IV SITE UNCHANGED, IV FLUIDS INFUSING DIRECTED AND WNL. SCD'S REMAIN OFF PER pt REQUEST.
--- NOTE | 2024-03-19 07:09 | NUR ---
Pt report received from NAY Sparks. Pt is A&O in bed, resting on her left side. Pt states she didn't sleep more than a couple of hours last night. Pt denies any pain at this time. SBA with line and tube mgmt as pt stands and ambulates to void in the toilet. Linens straightened up at this time. Pt voided 400ml clear yellow urine. Pt ambulated back to bed. Assessment performed at this time. Side rails up x4, call light in reach, sticky stuff cleaned up off the floor on the side of the head of the bed. White board updated.
--- NOTE | 2024-03-19 08:04 | NUR ---
PATIENT IN BED AT THIS TIME. TEST FACILITY ENGINEER WENT INTO PATIENTS ROOM FOR HOURLY ROUNDS. CALL LIGHT WITHIN REACH, NO FURTHER NEEDS AT THIS TIME.
--- NOTE | 2024-03-19 08:15 | NUR ---
In with pt and Dr. Carrera. Per Dr. Carrera, decreased IVF rate to 75ml/hr (he later put in the order). Pt seems confused as to the reason she was hospitalized. Dr. Carrera explained to pt the reasons and that she no longer meets criteria for hospital stay; however, pt still seems to believe she is in need of a surgical procedure rather than resolution of partial small bowel obstruction. After Dr. Carrera left the room, pt still expressed confusion about why she is here and what the plan is. I reiterated to her exactly what Dr. Carrera explained to her. Pt states that she would like to feel better, then have surgery after the holidays. I advised Dr. Carrera of her wishes. Dr. Carrera also advanced pt's diet, as tolerated. Clear liquid breakfast tray arrived for pt while I was in the room, pt requested saltines to try as well.
--- NOTE | 2024-03-19 08:41 | NUR ---
In with pt for morning medication administration. Pt asked clarification questions and then stated she would like to go home today because she would feel better at home, with the understanding that she can follow up with Dr. Carrera to talk about surgical options later. Dr. Carrera notified. He requested we ambulate the pt, make sure she eats some food, and gets a shower, and he will put in discharge orders later.
--- NOTE | 2024-03-19 08:59 | NUR ---
CONTINUES TO PLAN TO DC TO HOME WHEN MEDICALLY STABLE AND ABLE TO TOLERATE REGULAR DIET. STATES SHE WILL FOLLOW-UP WITH DR. ROCKWELL FOR HERNIA REPAIR OUTPATIENT. NO CM NEED.
[2024-03-19 09:16] VITALS: BP 116/57
[2024-03-19 09:17] VITALS: BP 116/57
--- NOTE | 2024-03-19 11:32 | NUR ---
In with pt for SBA to toilet. Pt back to bed afterwards. IVF running at ordered rate. Side rails up x4, call light in reach. Visitor in with pt.
--- NOTE | 2024-03-19 11:37 | NUR ---
Pt is up, ambulating the hallways with her visitor. Tolerating activity well. Pt is very tired today, states she didn't sleep well last night and has only gotten to nap for about an hour so far today. Pt has had a shower.
[2024-03-19 13:11] VITALS: BP 130/63
[2024-03-19 13:12] VITALS: BP 130/63
--- NOTE | 2024-03-19 13:18 | NUR ---
PATIENT IN BED AT THIS TIME. PRICE LISTER AND RN CHARTED VITALS. CALL LIGHT WITHIN REACH, NO FURTHER NEEDS AT THIS TIME.
--- NOTE | 2024-03-19 14:15 | NUR ---
In with pt for hourly rounding. Pt has visitors in room. Pt requested to void at this time. SBA with line and tube management as pt ambulated to toilet to void 400ml clear yellow urine. Pt back to bed, side rails up x4, call light in reach.
--- NOTE | 2024-03-19 15:31 | EKG ---
[facility] [address] [place] [address] Signed Sinus bradycardia Otherwise normal ECG When compared with ECG of 05-DEC-2023 03:16, No significant change was found Confirmed by Tonya Velasco MD () on 03/19/2024 3:30:56 PM Electronically Signed By: TONYA VELASCO MD 03/19/24 1531 PATIENT NAME: Tati PINTO Electrocardiogram DATE OF : 50 PHYSICIAN: TONYA VELASCO MD REPORT #: [id number] REPORT IS CONFIDENTIAL AND NOT TO BE RELEASED WITHOUT AUTHORIZATION
--- NOTE | 2024-03-19 15:53 | NUR ---
PATIENT IN BED AT THIS TIME. EXTRUDER TENDER DID HOURLY ROUNDS. CALL LIGHT WITHIN REACH, NO FURTHER NEEDS AT THIS TIME.
--- NOTE | 2024-03-19 15:57 | NUR ---
PC to Dr. Carrera as pt's family requesting to speak with him, although, I was able to answer their questions. Dr. Carrera gave verbal order to DC patient to home today, if she is wanting to go home today. Dr. Carrera ordered to follow up with him in a couple of weeks, resume regular home diet, restart regular home meds, activity as tolerated, return if symptoms worsen, notice blood in stool, develop fevers, or worsening pain.
[2024-03-19 17:58] VITALS: BP 138/60
[2024-03-19] MEDS ORDERED: LEVOTHYROXINE SODIUM 50 MCG TAB PO SCH (21:00)
--- NOTE | 2024-03-21 06:07 | DS ---
[facility] [address] [place], [place] [address] Signed ADMISSION DATE: 03/17/2024 DISCHARGE DATE: 03/19/2024 FINAL DIAGNOSES: 1. Viral related gastroenteritis with diarrhea and dehydration. 2. Chronic supraumbilical ventral midline incisional hernia with partial large bowel obstruction. PROCEDURE: Multiple x-rays. HISTORY OF PRESENT ILLNESS: Deacon Pantoja had been at home in her usual state, had developed rather significant diarrhea every 15 minutes. She was having nausea, vomiting, and dehydration. It is the same thing her son went through the week before. It lasted just over 7 days. By day 5, she was quite dehydrated and came to the emergency room for evaluation. She had been evaluated in the emergency room and there was some concern over her chronic ventral hernia from 10 years ago with partial large bowel obstruction. Therefore, she was admitted to me as a local general surgeon. HOSPITAL COURSE: Deacon Pantoja was admitted as above and treated conservatively. She actually improved markedly over just those couple of days. It was actually very difficult to find her midline hernia on physical exam. Once she was hydrated, her diarrhea resolved, her nausea resolved and she was actually doing quite well with her diet. She was a little concerned about the hernia, but it has been at least 10 years. We had advanced her diet and she did quite well. She said she would like to go home that day and may be dealing with the hernia at a later time, which is probably a tuttle decision given the fact she was pretty exhausted from the whole ordeal. DISCHARGE PLANS AND MEDICATIONS: Deacon Pantoja will be discharged to home without any new medications. She will follow her usual diet. She is welcome to follow up in my office in about 7 to 14 days. She reminded me that I just did her colonoscopy a few months back. We had gone back and looked at that as well. The colonoscope has gone through that ventral hernia area quite easily. She is welcome to shower and bathe as usual. She is welcome to perform her usual activities of daily living. She understands to simply resume her chronic medications. She has expressed understanding and agrees with the above plan. Electronically Signed By: WOODY ROCKWELL MD 03/21/24 0607 PATIENT NAME: Tati PINTO DISCHARGE SUMMARY DATE OF : 50 REPORT #: [id number] PHYSICIAN: WOODY ROCKWELL MD PCP: NIMA JUNG MD REPORT IS CONFIDENTIAL AND NOT TO BE RELEASED WITHOUT AUTHORIZATION [facility] [address] [facility] [place] [address] Signed Woody Rockwell MD ALB/MAIL /[id number] cc: Woody Rockwell MD Copies: WOODY ROCKWELL MD ~ Electronically Signed By: WOODY ROCKWELL MD 03/21/24 0607 PATIENT NAME: Tati PINTO DISCHARGE SUMMARY DATE OF : 50 REPORT #: [id number] PHYSICIAN: WOODY ROCKWELL MD PCP: NIMA JUNG MD REPORT IS CONFIDENTIAL AND NOT TO BE RELEASED WITHOUT AUTHORIZATION
== END 2024-03-19 18:10 | disposition home or self-care (01) | DRG 392 ==
LOC: ED 15:01 → MS 17:15
PROVIDERS: Emergency Medicine; ADMIT Colon & Rectal Surgery; ATTEND Colon & Rectal Surgery
DX: A08.4 Viral intestinal infection, unspecified (principal); K43.0 Incisional hernia with obstruction, without gangrene; E86.0 Dehydration; F32.A Depression, unspecified; K21.9 Gastro-esophageal reflux disease without esophagitis; E03.9 Hypothyroidism, unspecified; K74.60 Unspecified cirrhosis of liver; M19.90 Unspecified osteoarthritis, unspecified site; Z90.49 Acquired absence of other specified parts of digestive tract; Z90.710 Acquired absence of both cervix and uterus; Z98.890 Other specified postprocedural states; Z90.79 Acquired absence of other genital organ(s); Z88.8 Allergy status to other drugs, medicaments and biological substances; Z79.82 Long term (current) use of aspirin; Z79.890 Hormone replacement therapy; Z85.038 Personal history of other malignant neoplasm of large intestine; Z90.89 Acquired absence of other organs; Z88.1 Allergy status to other antibiotic agents; Z88.5 Allergy status to narcotic agent; Z91.018 Allergy to other foods; Z88.0 Allergy status to penicillin; Z91.048 Other nonmedicinal substance allergy status; Z79.899 Other long term (current) drug therapy; E83.42 Hypomagnesemia; Z88.2 Allergy status to sulfonamides
CPT/HCPCS: 36415; 74177; 80048; 80053; 81003; 83690; 83735; 84100; 85025; 87045; 87046; 93005; 93010; A9270; J0780; J1171; J1650; J2405; J2470; J3475; J7030; J7121; Q9967

== ENCOUNTER 2024-05-12 06:05 | Observation (INO) | payer MEDICARE, OTHER ==
[~2024-05-12] VITALS: Ht 157.5 cm; Wt 84.5 kg
[2024-05-12] VITALS (10 sets, daily range): BP systolic 113–130; BP diastolic 54–86
[~2024-05-12 06:05] MED LIST changes: +CLOBETASOL PROP15 GM TOP; +LACTATED RINGER'S 1,000 ML IV SCH; +LEVOTHYROXINE50 MCG PO; +ONDANSETRON HCL4 MG PO
[2024-05-12] MEDS ORDERED: CALCIUM 500-VI1 EAC6 PO (06:22)
[2024-05-12] MEDS ORDERED: VITAMIN B12500 MCG PO (06:22)
[2024-05-12] MEDS ORDERED: metroNIDAZOLE/SODIUM CHLORIDE 500 MG/100 ML PIGGYBACK IV SCH (07:00)
[2024-05-12] MEDS ORDERED: CEFAZOLIN SODIUM 2 GM/20 ML SYR IV SCH (07:00)
[2024-05-12] MEDS ORDERED: IBLOOD GLUCOSE TEST STRIP 1 EA TEST VI PRN ×2 (07:00→09:15)
[2024-05-12] MEDS ORDERED: HEParin SOD (PORCINE) 5,000 UNIT/ML SDV SUB-Q SCH (07:00)
[2024-05-12] MEDS ORDERED: LIDOCAINE HCL 1% 5 ML SDV INJ ONE (07:00)
[2024-05-12] MEDS ORDERED: fentaNYL citrate 100 MCG/2 ML VIAL ONE ×2 (07:24→07:53)
[2024-05-12] MEDS ORDERED: MAGNESIUM SULFATE 1 GM/2 ML VIAL ONE ×2 (07:25→08:46)
[2024-05-12] MEDS ORDERED: propofoL 200 MG/20 ML VIAL ONE (07:25)
[2024-05-12] MEDS ORDERED: ACETAMINOPHEN 1,000 MG/100 ML VIAL ONE (07:25)
[2024-05-12] MEDS ORDERED: LIDOCAINE HCL 2% 5 ML SDV ONE ×2 (07:25→08:45)
[2024-05-12] MEDS ORDERED: ROCURONIUM BROMIDE 50 MG/5 ML SYR ONE ×2 (07:25→08:14)
[2024-05-12] MEDS ORDERED: ondansetron HCL 4 MG/2 ML VIAL ONE (07:25)
[2024-05-12] MEDS ORDERED: DEXAMETHASONE SOD PHOS 4 MG/ML VIAL ONE (07:25)
[2024-05-12] MEDS ORDERED: SODIUM CHLORIDE 0.9% 40 ML IV ONE ×2 (07:25→08:45)
[2024-05-12] MEDS ORDERED: dexmedeTOMIDine HCl 200 MCG/2 ML VIAL ONE (07:25)
[2024-05-12] MEDS ORDERED: LIDOCAINE HCL 4% 5 ML AMP ONE (07:26)
--- NOTE | 2024-05-12 07:28 | NUR ---
PT NOT AVAILABLE FOR VISIT. PROVIDED PRAYER.
--- NOTE | 2024-05-12 07:34 | NUR ---
PT REQUESTED PRAYER ON WAY TO PROCEDURE. EVENT COORDINATOR PROVIDED PRAYER.
[2024-05-12] MEDS ORDERED: ePHEDrine sulfate 50 MG/ML AMP ONE (07:46)
[2024-05-12] MEDS ORDERED: SUGAMMADEX SODIUM 200 MG/2 ML ML ONE (09:00)
[2024-05-12] MEDS ORDERED: NALOXONE HCL 0.4 MG SYR IV PRN (09:15)
[2024-05-12] MEDS ORDERED: ondansetron HCL 4 MG/2 ML VIAL IV PRN ×2 (09:15→09:30)
[2024-05-12] MEDS ORDERED: fentaNYL citrate 50 MCG/ML SDV IV PRN (09:15)
[2024-05-12] MEDS ORDERED: DEXTROSE 5% - LACTATED RINGERS 1,000 ML IV SCH (09:30)
[2024-05-12] MEDS ORDERED: ACETAMINOPHEN 325 MG TAB PO PRN (09:30)
[2024-05-12] MEDS ORDERED: PROCHLORPERAZINE EDISYLATE 10 MG/2 ML VIAL IV PRN (09:30)
[2024-05-12] MEDS ORDERED: ACETAMINOPHEN 650 MG SUPP PR PRN (09:30)
[2024-05-12] MEDS ORDERED: HYDROmorphone HCL 1 MG/ML SYR IV PRN (09:30)
[2024-05-12] MEDS ORDERED: PANTOPRAZOLE SODIUM 40 MG/10 ML VIAL IV SCH (09:32)
--- NOTE | 2024-05-12 09:36 | NUR ---
05/12/24 0936 Ingris Amaro 0920- PT ARRIVES TO PACU, SEMI PHILLIPS POSITION. PT EYES OPEN BUT VERY DROWSY. TURNS HEAD TO TOWARD VOICE BUT DOESN'T ANSWER QUESTIONS. O2 AT 6L PER MASK, BREATHING EVEN AND NON LABORED. FOLLOWS COMMANDS TO DEEP BREATH, CAUSES SOME COUGHING, ABD INCISION SPLINTED BY STAFF. DRESSING IN PLACE, CDI. ABD SOFT, NON DISTENDED. LR INFUSING TO RFA IV. ALL MONITORS IN PLACE. 0930- PT RESTING INTERMITTENTLY, CONTINUES TO COUGH, ABD SPLINTED BY PILLOW AND ICE PACK. PT DENIES PAIN AND NAUSEA. CONTINUE TO MONITOR. 0935- PT MOVED TO ROOM AIR AT THIS TIME.
[2024-05-12] MEDS ORDERED: OXYCODONE HCL 5 MG TAB PO PRN (09:45)
--- NOTE | 2024-05-12 10:33 | NUR ---
PATIENT IS SETTLED IN ROOM, DENIES PAIN AT THIS TIME. MID ABDOMINAL INCISION IS COVERED WITH GUAZE AND TAPE, CDI. PATIENT IS ON 2L SATS ARE 94%. PULSE OX IS ON. SCD'S ARE ON. FAMILY IN ROOM WITH PATIENT.
--- NOTE | 2024-05-12 11:15 | NUR ---
PT ASSESSMENT COMPLETED. PT RESTING IN BED, ICE PACK TO ABDOMINAL INCISION, PT SPLINTING HER TUMMY WITH PILLOW, C/O 3/10 PAIN TO ABDOMEN/(R) BACK/HIP, PRN MEDS GIVEN - SEE JUN. UPON DISCUSSION PT STATES SHE HAS ALLERGY TO OXYCODONE - CAUSES A SEVERE RASH, REQUESTING NORCO INSTEAD OF THAT SHE IS ABLE TO TOLERATE THAT, WILL CALL MD. CPOX IN PLACE, SATS 94% ON 2L PER NASAL CANNULA. VS STABLE ON ADMISSION TO THE FLOOR. VALLADARES CATH IN PLACE DRAINING YELLOW URINE, PT STATES SHE NEEDS TO PEE, EDUCATED HER THAT THE CATHETER MAY BE MAKING HER FEEL LIKE THAT BUT IT IS DRAINING. FAMILY IS PRESENT AT BEDSIDE. PT PROVIDED ICE WATER/ICE CHIPS POSTOP HER MOUTH IS VERY DRY, IV FLUIDS STARTED ORDERED - SEE JUN. CURRENTLY PT WOULD LIKE TO REST POST MEDICATION ADMIN FOR PAIN, FAMILY REMAINS AT BEDSIDE. CALL LIGHT WITHIN REACH. MIDLINE INCISION HAS DRESSING IN PLACE, NO DRAINAGE AT THIS TIME.
--- NOTE | 2024-05-12 12:20 | NUR ---
PT RESTING IN BED, IV FLUIDS INFUSING. DRESSING TO MIDLINE REMAINS CDI, PAIN IS TOLERABLE AT THIS TIME. CALL LIGHT WITHIN REACH, ALL PT CARE NEEDS MET.
--- NOTE | 2024-05-12 13:38 | NUR ---
PT RESTING IN BED, DAUGHTER AT BEDSIDE. PT C/O 12/15 PAIN AT THIS TIME, PRN DILAUDID GIVEN. IV FLUIDS INFUSING STILL. DRESSING TO ABDOMEN IS CDI. PT TOLERATING CLEARS, DENIES NAUSEA AT THIS TIME. PROVIDED FRESH ICE WATER/ICE CHIPS, NEW ICE PACK. DENIES ANY FURTHER NEEDS AT THIS TIME. CALL LIGHT WITHIN REACH.
[2024-05-12] MEDS ORDERED: HYDROmorphone HCL 4 MG TAB PO PRN (14:15)
--- NOTE | 2024-05-12 14:45 | NUR ---
UR CLINICAL REVIEW: 2 MN FOR VERSALUS-MEETS CRITERIA FOR POST OP OBS STAY MEDICARE OBS 05/12/24 @ 0936 ORDER MATCHES REG NO AUTH REQUIRED PER MEDICARE GUIDELINES DISCHARGE TO HOME WHEN STABLE 05/13/24
--- NOTE | 2024-05-12 15:05 | NUR ---
PT UP THE CHAIR WITH 1 ASSIST AT THIS TIME. PT TOLERATED GETTING UP WELL. SHE DID C/O 8/10 PAIN, ICE PACK IN PLACE WHEN UP TO CHAIR. FAMILY REMAINS AT BEDSIDE. PT TOLERATING CLEAR LIQUIDS. INCISION REMAINS CDI AT THIS TIME. PT HAS PILLOW SHE IS SPLINTING HER ABDOMEN WITH AND IT SEEMS TO WORK WELL FOR HER.
[2024-05-12] MEDS ORDERED: SEVOFLURANE 250 ML BTL INH ONE (15:38)
--- NOTE | 2024-05-12 16:21 | NUR ---
PT REQUESTING FRESH ICE PACKS FOR ABDOMEN, X2 PROVIDED. PT DENIES ANY FURTHER NEEDS. INCISION REMAINS CDI. CALL LIGTH WITHIN REACH.
--- NOTE | 2024-05-12 17:44 | NUR ---
PT REQUESTING REGULAR DIET FOR DINNER. CALL TO MD, ORDER FOR SOFT DIET PUT IN VIA TELEPHONE ORDER. PT INFORMED, DIETARY NOTIFIED AND WILL SEND UP MEAL TRAY.
--- NOTE | 2024-05-12 17:47 | NUR ---
PATIENT IN BED AT THIS TIME. RN TALKED TO DR ABOUT GETTING FOOD FOR PATIENT, CURRENTLY WAITING FOR DINNER. CALL LIGHT WITH IN REACH. NOTHING ELSE NEEDED AT THIS TIME.
--- NOTE | 2024-05-12 18:53 | NUR ---
PT RESTING IN BED, PRESENT AT BEDSIDE. PT STATES PAIN IS 3/10 AT THIS TIME, SHE IS COMFORTABLE AT THIS TIME. ICE PACKS IN PLACE. PT DENIES ANY NEEDS AT THIS TIME. CALL LIGHT WITHIN REACH. CATHETER IN PLACE DRAINING YELLOW URINE. ALL PT CARE NEEDS AT THIS TIME.
--- NOTE | 2024-05-12 19:36 | NUR ---
REPORT RECEIVED FROM DAY SHIFT RN. PATIENT RESTING IN BED. DENIES NEEDS AT THIS TIME. CALL LIGHT IN REACH.
[2024-05-12] MEDS ORDERED: HEParin SOD (PORCINE) 5,000 UNIT/ML SDV SUB-Q ONE (20:00)
--- NOTE | 2024-05-12 20:29 | NUR ---
PATIENT RESTING IN BED. SCHEDULED MEDICATION ADMINSITERED. PATIENT REPOSITIONED IN BED. PATIENT REPORTS 8/10 ABD PAIN. PRN PAIN MEDICATION ADMINISTERED. ASSESSMENT COMPLETE. ABD DRESSING C/D/I. FRESH ICE PACKS PROVIDED. PATIENT HAS NO FURTHER NEEDS AT THIS TIME. CALL LIGHT IN REACH.
[2024-05-12] MEDS ORDERED: CITALOPRAM HYDROBROMIDE 20 MG TAB PO SCH (21:00)
[2024-05-12] MEDS ORDERED: LEVOTHYROXINE SODIUM 50 MCG TAB PO SCH (21:00)
--- NOTE | 2024-05-12 22:59 | NUR ---
PATIENT RESTING IN BED. DENIES NEEDS AT THIS TIME. CALL LIGHT IN REACH.
--- NOTE | 2024-05-12 23:42 | NUR ---
PATIENT REPORTING 10/10 ABD PAIN. PRN PAIN MEDICATION ADMINISTERED PER PATIENT REQUEST. NO FURTHER NEEDS. CALL LIGHT IN REACH.
[2024-05-13] VITALS (10 sets, daily range): BP systolic 112–159; BP diastolic 55–78
--- NOTE | 2024-05-13 00:23 | NUR ---
PATIENT REPORTS 6/10 ABD PAIN. PATIENT STATES "IT STILL HURTS, BUT IT FEELS LIKE THE PAIN LAST TIME WHEN I HAD A SURGERY LIKE THIS". PATIENT EDUCATED TO TELL THIS RN IF SHE FEELS HER ABD BECOME MORE DISTENDED OR IF THE PAIN GETS WORSE. PATIENT VERBILIZED UNDERSTANDING. PRN PAIN MEDICATION ADMINSITERED. VS AND I&Os OBTAINED AND RECORDED. NO FURTHER NEEDS. CALL LIGHT IN REACH.
--- NOTE | 2024-05-13 01:49 | NUR ---
PATIENT RESTING IN BED ON BACK WITH EYES CLOSED. RESPIRATIONS EVEN AND UNLABORED. CALL LIGHT IN REACH.
--- NOTE | 2024-05-13 03:24 | NUR ---
PATIENT REPORTING 4/10 ABD PAIN. PATIENT REQUESTING IV PAIN MEDICATION AT THIS TIME. PRN PAIN MEDICATION ADMINISTERED. NO FURTHER NEEDS. CALL LIGHT IN REACH.
--- NOTE | 2024-05-13 05:22 | NUR ---
PATIENT RESTING IN BED. VS AND I&Os OBTAINED AND RECORDED. PATIENT STATES SHE IS FEELING BETTER. PATIENT STATES SHE HAS PASSED FLATUS DURING THE NIGHT. FRESH ICE WATER AND ICE PACK PROVIDED. NO FURTHER NEEDS. CALL LIGHT IN REACH. LAB REMAINS IN ROOM.
--- NOTE | 2024-05-13 05:46 | OR ---
[facility] [address], [place] [address] Signed DATE OF OPERATION: 05/12/2024 SURGEON: Woody Rockwell MD PREOPERATIVE DIAGNOSIS: Epigastric and periumbilical incisional hernias both incarcerated, measuring 5 x 8 cm and 1 cm. POSTOPERATIVE DIAGNOSIS: Epigastric and periumbilical incisional hernias both incarcerated, measuring 5 x 8 cm and 1 cm. PROCEDURE: Primary incisional herniorrhaphy x2, with intraabdominal Ventrio mesh, measuring 13.8 x 17.8 cm. ESTIMATED BLOOD LOSS: 10 mL. 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 She went through a vertical banded Eleazar gastroplasty in probably the 1980s. She said that never really worked. Later, she had the open sigmoid resection with Dr. Fagan for diverticular disease. She had an epigastric hernia and a small periumbilical hernia actually for quite a number years, this slowly but surely gotten progressively larger. She noticed it was starting to affect her bowel movements just a little bit. The CT scan confirmed the transverse colon in the epigastric incisional hernia. There was fat in her periumbilical incisional hernia. She had been asked to see me with respect to the above. I had given her our brochure on hernias. We went through it page by page. We reviewed the difference between a primary suture repair and a mesh repair. She understands the expected intraop and postop course. About 2% of these patients end up staying in the hospital at least a day or two after extensive surgery based on intraoperative findings. There is risk to the surgery including, but not limited to bleeding, infection, scarring, change in contour of the skin, damage to bowel, infection of mesh requiring removal, recurrent hernias, chronic pain and other unforeseen comorbidities. She had expressed understanding and wished to proceed. PROCEDURE IN DETAIL: I met with Tati Pantoja and her entire family in our preop area. We were able to easily confirm the hernias and we circled those and marked it appropriately. After this, she Electronically Signed By: WOODY ROCKWELL MD 05/13/24 0546 PATIENT NAME: Tati PINTO OPERATIVE REPORT DATE OF : 50 REPORT #: [id number] PHYSICIAN: WOODY ROCKWELL MD PCP: BRE JUNG MD REPORT IS CONFIDENTIAL AND NOT TO BE RELEASED WITHOUT AUTHORIZATION [facility] [address], [place] [address] Signed was taken into the operating room and placed in the supine position under general endotracheal tube anesthesia. She was given preoperative antibiotics along with subcutaneous heparin. SCDs were utilized. A Rousseau catheter was inserted with return of clear yellow urine. She was then prepped and draped in the usual sterile fashion. We utilized her previous standard periumbilical midline incision, carried that down and around the two hernias with the help of the cautery. The umbilical hernia was only about a centimeter wide. The hernia sac was amputated and passed off the field. The fat was reduced in the abdomen. We then approached epigastric hernia. We found that it was lying transversely and it ended up being 5 x 8 cm as we measured that out. It contained the transverse colon clear across the hernia. It took a while to separate transverse colon from the surrounding tissues and hernia sac. We left the hernia sac attached initially to the top half of the incision. Thankfully, we did have her do a bowel prep before the surgery. We freed up the entire abdominal cavity up to the edge of the liver up over her stomach and all the way out lateral and inferiorly. It was all free except for directly over the subxiphoid area over her stomach. We had more than half room to place our mesh. There was plenty of omentum between the bowel and the mesh. We chose our 13.8 x 17.8 cm oval shaped Ventrio mesh. We placed it in the abdomen transversely and we laid it down flat very carefully under direct visualization. Unfortunately, our absorbable tack general office clerk had . Thankfully, we did not particularly need it. We closed the fascial defect transversely with interrupted [id number] #2 Prolene sutures. Several passes of the suture went through the mesh to help hold it in place. This brought the fascia back together primarily over the mesh. The remainder of the hernia sac was amputated and passed off the field. Before this, we closed the umbilical fascial defect with two interrupted [id number] #1 Prolene sutures as well. The mesh covered both areas. After this, I injected local anesthetic in the abdominal wall. The wound was irrigated and suctioned out until clear. We brought the umbilical skin back down to the midline fascia with an interrupted 2-0 PDS suture. The dermis was reapproximated with interrupted 3-0 subcuticular Monocryl sutures. The skin edges were reapproximated with ivelisse. Dry gauze and tape were then applied. We left the Rousseau catheter in place. Tati Pantoja was then awakened from her anesthesia, extubated in the OR, and taken to the recovery room in stable condition. Woody Rockwell MD ALB/MODL /[id number] Electronically Signed By: WOODY ROCKWELL MD 05/13/24 0546 PATIENT NAME: Tati PINTO OPERATIVE REPORT DATE OF : 50 REPORT #: [id number] PHYSICIAN: WOODY ROCKWELL MD PCP: BRE JUNG MD REPORT IS CONFIDENTIAL AND NOT TO BE RELEASED WITHOUT AUTHORIZATION [address] [address] Signed cc: Woody Rockwell MD Patient Chart Dr. Bre Jung Copies: WOODY ROCKWELL MD ~ Electronically Signed By: WOODY ROCKWELL MD 05/13/24 0546 PATIENT NAME: Tati PINTO OPERATIVE REPORT DATE OF : 50 REPORT #: [id number] PHYSICIAN: WOODY ROCKWELL MD PCP: BRE JUNG MD REPORT IS CONFIDENTIAL AND NOT TO BE RELEASED WITHOUT AUTHORIZATION
[2024-05-13 05:51] LABS: BASOPHILS 0.1 % (0-2); HEMATOCRIT 39.4 % (35.0-50.0); HEMOGLOBIN 13.2 g/dL (12.0-18.0); LYMPHOCYTES 5.6 % (24-44); MCH 29.3 (27-36); MCHC 33.6 g/dl (30-36); MCV 87.1 fl (81-99); MONOCYTES 8.4 % (0-12); NEUTROPHILS 85.9 % (39-80); PLATELET COUNT 165 K/uL (140-440); RBC 4.52 M/ul (4.3-5.7)
[2024-05-13 06:04] LABS: BUN/CREATININE RATIO 16.36 (6.0-28.6); CREATININE, SERUM 0.55 mg/dL (0.55-1.02); MAGNESIUM 2.2 mg/dL (1.8-2.4); PHOSPHORUS, INORGANIC 3.8 mg/dL (2.5-4.9)
[2024-05-13] MEDS ORDERED: ACETAMINOPHEN 500 MG TAB PO PRN (06:15)
--- NOTE | 2024-05-13 06:42 | NUR ---
VALLADARES CATHETER DCd WNL. PATIENT ELHAM WELL. NO FURTHER NEEDS. CALL LIGHT IN REACH.
--- NOTE | 2024-05-13 07:12 | NUR ---
REPORT RECEIVED FROM NAY IBARRA. PT AWAKE AND ALERT IN BED, AT BEDSIDE. CPOX IN PLACE WITH SPO2>96% ON 1LNC. OXYGEN TITRATED TO RA AT THIS TIME. PT REQUESTS TOILETING AT THIS TIME. MARILU BARNHART ASSISTS PT TO BATHROOM AT THIS TIME, REMAINS WITH PT.
--- NOTE | 2024-05-13 07:52 | NUR ---
UR CONCURRENT/CLINICAL REVIEW: 2 MN FOR VERSALUS-MEETS CRITERIA FOR POST OP OBS STAY MEDICARE OBS 05/12/24 @ 0936 ORDER MATCHES REG NO AUTH REQUIRED PER MEDICARE GUIDELINES DISCHARGE TO HOME WHEN STABLE 05/14/24
--- NOTE | 2024-05-13 08:04 | NUR ---
PT UP IN RECLINER AT THIS TIME. ICE PACK TO MIDLINE INCISION. SCDs IN PLACE. SPIRTE/CRANBERRY JUICE PROVIDED. PT SPO2 SUSTAINS 89% ON ROOM AIR, 1LNC REAPPLIED AT THIS TIME. PT ENCOURAGED TO USE INCENTIVE SPIROMETER, DEMONSTRATES USE X10, VERBALIES UNDERSTANDING OF USE. CALL LIGHT IN REACH. NO OTHER REQUESTS AT THIS TIME.
[2024-05-13] MEDS ORDERED: PANTOPRAZOLE SODIUM 40 MG TABEC PO SCH (09:00)
[2024-05-13] MEDS ORDERED: ENOXAPARIN SODIUM 40 MG/0.4 ML SYR SUB-Q SCH (09:00)
--- NOTE | 2024-05-13 09:22 | NUR ---
MEDICATION ADMINISTERED, SEE JUN. ASSESSMENT COMPLETE. PT IN RECLINER FINISHING BREAKFAST WHEN THIS RN INITIALLY ENTERS. BREAKFAST FINISHED. PT AMBULATES WITH SBA TO RESTROOM, VOIDS 30ML OF CLOUDY, YELLOW URINE. PT REPORTS SHE FEELS THOUGH SHE IS HAVING A BOWEL MOVEMENT, BUT THIS IS ONLY GAS AT THIS TIME. PT AMBULATES TO BED. SHE IS REQUESTING A BREAK FROM HER SCDs AT THIS TIME - PROVIDED. ATTEMPTED TITRATING OXYGEN TO ROOM AIR DURING ASSESSMENT. PT MAINTAINED SPO2>92% WHILE AWAKE, HOWEVER WHEN SHE BEGAN FALLING ASLEEP HER SPO2 SUSTAINED 87-89%. 1LNC BACK IN PLACE AT THIS TIME. PT BOWEL TONES ARE ACTIVE IN FOUR QUADRANTS, PT IS PASSING GAS. SHE IS NON-TENDER TO PALPATION. MIDLINE INCISION IS OPEN TO AIR WITH KYUNG. THERE IS ONE SPOT OF SCANT BLEEDING NEAR THE TOP OF THE INCISION, THIS IS DABBED AWAY WITH AN ALCOHOL PAD.
--- NOTE | 2024-05-13 10:00 | NUR ---
Spoke with pt and her daughter, Matthew. Pt lives in a 1 story house with her , Clarence. Matthew and pts son, Chadwick assist them as needed. Home has 3 steps with rails. Pt denies any issues to get into the home. She denies any needs. She has a walker, walk in shower with rails, and an ada toilet. Pt states she will dc to home tomorrow per her Dr. She will go home to her house with her . She denies financial issues.
--- NOTE | 2024-05-13 10:42 | NUR ---
PT NOT AVAILABLE FOR VISIT. PROVIDED PRAYER.
--- NOTE | 2024-05-13 10:45 | NUR ---
PT RESTING IN BED WITH VISITOR AT BEDSIDE. PT REPORTS HER ABDOMINAL INCISION PAIN IS NOW A 3/10, SAYS SHE CONTINUES TO HAVE FLATULENCE AT THIS TIME. PT CONTINUES PO FLUIDS, REPORTS TO HER VISITOR THAT SHE HAD HER CATHETER REMOVED THIS AM AND NEEDS TO URINATE MORE. FRESH ICE WATER AND JUICE PROVIDED. PT HAS NO REQUESTS AT THIS TIME, CALL LIGHT IN REACH, VISITOR REMAINS IN ROOM.
--- NOTE | 2024-05-13 11:20 | NUR ---
PT RESTING BACK IN BED AFTER TOILETING WITH MARILU BARNHART. PT NOTED TO BE ON ROOM AIR, CPOX WITH SPO2>92% AT THIS TIME. PT HAS TWO VISITORS PRESENT IN ROOM AT THIS TIME. PT NOTED TO HAVE VOIDED 300ML. PT ENCOURAGED TO CONTINUE DRINKING, AGREEABLE. NO OTHER REQUESTS AT THIS TIME, CALL LIGHT IN REACH.
[2024-05-13] MEDS ORDERED: TYLENOL EXTRA500 MG PO (12:29)
--- NOTE | 2024-05-13 12:29 | NUR ---
MED REC COMPLETE
--- NOTE | 2024-05-13 12:39 | NUR ---
PT EATING LUNCH AT THIS TIME, VISITOR AT BEDSIDE. PT HAS NO REQUESTS BUT EXPRESSES INTEREST IN AMBULATING AFTER LUNCH. PT REMAINS ON ROOM AIR AT THIS TIME, CPOX AT BEDSIDE, CALL LIGHT IN REACH.
--- NOTE | 2024-05-13 13:02 | NUR ---
PT REQUESTING RESTROOM USE. PT DISCONNECTED FROM IV, CPOX, AND SCDs AND ALLOWED TO AMBULATE WITH SBA TO RESTROOM. NEAR THE FOOT OF HER BED PT REPORTS "OH! IT'S COMING OUT!" ENCOURAGED PT TO CONTINUE TO THE RESTROOM THERE WAS NO TIME/SPACE TO MANUEVER A BSC TO HER. PT MAKES IT TO TOILET AND HAS SOME URINE TO HER UPPER THIGHS. WIPES AND DRY TOWEL PROVIDED. PT PROVIDED WITH PULL-UP AT THIS TIME IN CASE OF FUTURE URGENCY. PT ENCOURAGED TO PROVIDE HER OWN YESIKA-CARE AND USE CALL LIGHT CORD WHEN FINISHED IN BATHROOM. PT VERBALIZES UNDERSTANDING.
--- NOTE | 2024-05-13 13:19 | NUR ---
CALL LIGHT ANSWERED. PATIENT SITTING ON BED. PATIENT STATED, " I JUST CAM EBACK FROM THE [facility] AND I AM BLEEDING." RN EDUCATED PATIENT ON IMPORTANCE OF USING CALL LIGHT IN [facility] AND WAITING FOR ASSISTANCE BEFORE SHE GOES BACK TO BED. NOTED SMALL SCANT AMOUNT IF RED DRAINAGE FROM BOTTOM QUARTER OF MIDLINE INCISION. SITE STILL APPEARS TO BE WELL APPROXIMATED. PATIENT REQUESTING ICE PACK. ICE PACK GIVEN . CALL LIGHT WITHIN REACH.
--- NOTE | 2024-05-13 13:50 | NUR ---
PT RESTING IN BED AT THIS TIME, REPORTS MILD ABDOMINAL DISCOMFORT. BOWEL TONES NOTED TO BE HYPOACTIVE IN ALL FOUR QUADRANTS WITH SOME TENDERNESS TO HER RUQ. PT REPORTS THIS IS COMMON FOR HER AND R/T A HEPATIC DISORDER SHE HAS HAD FOR AWHILE. PT HAD INTENDED TO GO FOR A WALK BUT NOW REPORTS SHE IS NOT FEELING UP TO IT. ICE PACK TO INCISION. CHARGE NURSE JARROD REPORTS THAT PT HAD SOME SCANT DRAINAGE FROM HER INCISION WHICH STAINED HER GOWN SO A FRESH GOWN WAS SUPPLIED. PTs REMAINS IN ROOM WITH PT THROUGHOUT. PT HAS ANOTHER VOID WHICH IS CLEAR AND YELLOW. PT REPORTS HAVING A BOWEL MOVEMENT, HOWEVER THERE IS ONLY A SCANT LIQUID SMEAR NOTED TO TOILET BOWEL. PT CONTINUES HAVING FLATULENCE. IV TO R FOREARM FLUSHES WNL AND HAS IVF INFUSING WNL. NO REQUESTS AT THIS TIME, CALL LIGHT IN REACH.
--- NOTE | 2024-05-13 16:41 | NUR ---
PAIN MED GIVEN FOR MID ABD INCISIONAL PAIN 11/14. PT RESTING IN BED WATCHING TV WITH IN ROOM. CALL LIGHT WITHIN REACH.
--- NOTE | 2024-05-13 17:30 | NUR ---
PT AMBULATES WITH SUPERVISION ONLY TO RESTROOM AND VOIDS. PT SUPPLIES HER OWN YESIKA-CARE AND CHANGES HER OWN PULL-UP. PT REQUESTS GOING FOR A WALK AT THIS TIME. PT WALKS ONE LAP AROUND NURSE'S STATION WITH NO ASSISTANCE, ALSO JOINS WALK. PT RETURNS TO ROOM AND SITS IN RECLINER AT THIS TIME. ICE WATER AND FRESH ICE PACK SUPPLIED. PT COMPLAINS OF DRAINAGE AT HER INCISION SITE, SCANT SEROSANGUINOUS DRAINAGE NOTED, PT ENCOURAGED THAT SUCH DRAINAGE IS NORMAL. PT USES INCENTIVE SPIROMETER X10. REPORTS NO SHORTNESS OF BREATH AT THIS TIME. REMAINS ON ROOM AIR. CPOX IN PLACE. IVF INFUSING WNL. NO OTHER REQUESTS, CALL LIGHT IN REACH.
--- NOTE | 2024-05-13 19:27 | NUR ---
REPORT RECEIVED FROM DAY SHIFT RN. PATIENT RESTING IN BED. NO CURRENT NEEDS AT THIS TIME. CALL LIGHT IN REACH.
--- NOTE | 2024-05-13 20:20 | NUR ---
PATIENT RESTING IN BED. MARILU DÍAZ ASSISTED PATIENT TO BATHROOM USING 1P ASSIST TO VOID. PATIENT BACK TO BED. VS AND I&Os OBTAINED AND RECORDED. PATIENT REPORTS 8/10 ABD PAIN. PRN PAIN MEDICATION ADMINISTERED. SCHEDULED MEDICATION ADMINISTERED. ASSESSMENT COMPLETE. ABD INCISION C/D/I. BOWEL TONES ACTIVE. SCDs IN PLACE. PATIENT HAS NO FURTHER NEEDS AT THIS TIME. CALL LIGHT IN REACH.
--- NOTE | 2024-05-13 23:14 | NUR ---
ROUNDING ON PATIENT. PATIENT RESTING IN BED AND STATES "I AM SLEEPING. I AM NOT IN PAIN RIGHT NOW". NO FURTHER NEEDS AT THIS TIME. CALL LIGHT IN REACH.
--- NOTE | 2024-05-14 00:35 | NUR ---
PATIENT REPORTS 8/10 ABD PAIN. PRN PAIN MEDICATION ADMINISTERED PER PATIENT REQUEST. NEW BAG IV FLUID INFUSING PER ORDER. NO FURTHER NEEDS. CALL LIGHT IN REACH.
--- NOTE | 2024-05-14 01:09 | NUR ---
CALL LIGHT ANSWERED. PT NEEDED TO USE BATHROOM. CORN MILLER SBA AND PT VOIDED. PT THEN ASSISTED BACK TO BED. PT STATES NO FURTHER NEEDS AT THIS TIME. CALL LIGHT WITHIN REACH.
[2024-05-14 05:22] VITALS: BP 128/58
--- NOTE | 2024-05-14 07:31 | NUR ---
REPORT RECEIVED FROM NAY IBARRA. PT RESTING IN BED WITH AT BEDSIDE. PT IS TALKATIVE AND GIGGLY, REPORTS SHE IS GOING HOME TODAY AND APPEARS VERY EXCITED. PTs REPORTS SHE RECENTLY RECEIVED PAIN MEDICATION AND HAS BEEN ACTING A LITTLE STRANGELY. PT ENCOURAGED TO DRINK FLUIDS AND REST AT THIS TIME. CALL LIGHT IN REACH, REMAINS IN ROOM.
--- NOTE | 2024-05-14 07:55 | NUR ---
INTO SEE PATIENT. PATIENT SAYS SHE HAD A GOOD NIGHT. EATING BREAKFAST. SHE SAYS SHE IS GETTING DISCHARGED TODAY. ROSELIA TO PICK HER UP. DENIES ANY NEEDS FROM CM AT THIS TIME.
[2024-05-14] MEDS ORDERED: DILAUDID4 MG PO (08:37)
--- NOTE | 2024-05-14 09:45 | NUR ---
PT RESTING IN BED AT THIS TIME, PRESENT AT BEDSIDE. PT REMAINS DROWSY. MIDLINE INCISION IS OPEN TO AIR WITH KYUNG, SCANT SEROSANGUINOUS DRAINAGE NOTED TO BOTTOM OF INCISION. REINFORCED WITH PT THAT THIS DRAINAGE IS TO BE EXPECTED AND PROVIDED EDUCATION ON DRAINAGE THAT WOULD BE CAUSE FOR ALARM. PT VERBALIZES UNDERSTANDING. PT HAS PULL-UP IN PLACE. BOWEL TONES ACTIVE IN ALL FOUR QUADRANTS, NO TENDERNESS WITH PALPATION, NO NAUSEA OR DISCOMFORT REPORTED. PT REPORTS SHE IS NOT ALL THAT HUNGRY, BREAKFAST TRAY REMAINS AT BEDSIDE, PT DOES NOT WANT IT REMOVED YET. PT REPORTS SHE IS LOOKING FORWARD TO GOING HOME TODAY. HAS PAPER PRESCIRPTION, HE LEAVES AT THIS TIME TO TAKE SCRIPT TO PHARMACY. PT REMAINS RESTING IN BED IN NO DISTRESS, HAS NO REQUESTS AT THIS TIME. CALL LIGHT IN REACH.
[2024-05-14 09:52] VITALS: BP 120/63
--- NOTE | 2024-05-14 14:02 | DS ---
[facility] [address], [place] [address] Signed ADMISSION DATE: 05/12/2024 DISCHARGE DATE: 05/14/2024 FINAL DIAGNOSES: 1. Transverse epigastric incisional hernia (5 x 8 cm). 2. Periumbilical incisional hernia (1 cm). PROCEDURE: Primary repair of epigastric and periumbilical incisional hernias with intraabdominal Ventrio mesh (13.8 x 17.8 cm). HISTORY OF PRESENT ILLNESS: Tati Pantoja is a 74-year-old female, who underwent a Eleazar vertical banded gastroplasty many years ago for what sounds like bowel reflux. She said that never really worked. 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 I helped her with upper and lower endoscopies. She has had an epigastric and periumbilical incisional hernia for quite some time. She has been encouraged to have it repaired. The epigastric hernia contains transverse colon and the periumbilical hernia contains fat. 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 She told me the transverse colon starting to bother her in that hernia. She decided she better have it repaired. She therefore was brought to the hospital on 05/12/2024. HOSPITAL COURSE: Tati Pantoja was brought to the hospital on 05/12/2024 for her primary repair of epigastric and periumbilical hernias. We used her previous midline incision. We used Ventrio mesh measuring 13.8 x 17.8 cm. It has been placed transversely in her upper abdomen. It was quite a bit of surgery. We did put her through a bowel prep before hand. We therefore kept her in the hospital a couple of days. Overall, she is doing well. She is a little tired, but generally is able to perform her activities of daily living. She is tolerating her regular diet. She is a little distended, but soft. No nausea or vomiting. She and her live here in town about 8 or 10 minutes from the hospital. They both felt comfortable going home today. She has been doing well with Dilaudid by mouth or IV for her pain control. DISCHARGE PLAN AND MEDICATIONS: Tati Pantoja is going to be discharged to home with a prescription for Dilaudid 4 mg tablets one tablet p.o. q.8 h. p.r.n. for severe postoperative pain, dispense 15 tablets with no refills. She has taken Tylenol and ibuprofen in the past. She can use that for [id number] postoperative pain that can be purchased [id number]-[id number]. She is welcome to resume all her chronic medications including aspirin. She can continue a regular diet at home as tolerated. She can continue her activities of daily living Electronically Signed By: WOODY ROCKWELL MD 05/14/24 1402 PATIENT NAME: Tati PINTO DISCHARGE SUMMARY DATE OF : 50 REPORT #: [id number] PHYSICIAN: WOODY ROCKWELL MD PCP: BRE JUNG MD REPORT IS CONFIDENTIAL AND NOT TO BE RELEASED WITHOUT AUTHORIZATION [address] [address] Signed including walking up and down stairs and showering bathing as usual. She should not do any heavy pushing, pulling, or lifting over about 20 pounds. We will leave all the ivelisse in place. We will have her back to the office in about 7-10 days for followup and remove the ivelisse. She and her have expressed understanding and agreed with the above plan. Woody Rockwell MD ALB/MODL /[id number] cc: Dr. Bre Rockwell MD Patient Chart Copies: WOODY ROCKWELL MD ~ Electronically Signed By: WOODY ROCKWELL MD 05/14/24 1402 PATIENT NAME: Tati PINTO DISCHARGE SUMMARY DATE OF : 50 REPORT #: [id number] PHYSICIAN: WOODY ROCKWELL MD PCP: BRE JUNG MD REPORT IS CONFIDENTIAL AND NOT TO BE RELEASED WITHOUT AUTHORIZATION
== END 2024-05-14 11:50 | disposition home or self-care (01) ==
LOC: DS 06:05 → MS 09:55 → DS 09:55 → MS 05-14 11:50
PROVIDERS: ADMIT Colon & Rectal Surgery; ATTEND Colon & Rectal Surgery
PROC: 0WUF0JZ Supplement Abdominal Wall with Synthetic Substitute, Open Approach (ICD-10-PCS; principal; 2024-05-12 07:30)
DX: K43.6 Other and unspecified ventral hernia with obstruction, without gangrene (principal); K42.0 Umbilical hernia with obstruction, without gangrene; K21.9 Gastro-esophageal reflux disease without esophagitis; E03.9 Hypothyroidism, unspecified; F33.1 Major depressive disorder, recurrent, moderate; E66.9 Obesity, unspecified; Z68.34 Body mass index [BMI] 34.0-34.9, adult; Z79.82 Long term (current) use of aspirin; Z79.899 Other long term (current) drug therapy; Z88.0 Allergy status to penicillin; Z88.1 Allergy status to other antibiotic agents; Z88.2 Allergy status to sulfonamides; Z88.5 Allergy status to narcotic agent; Z88.6 Allergy status to analgesic agent; Z88.8 Allergy status to other drugs, medicaments and biological substances; Z91.018 Allergy to other foods; Z91.048 Other nonmedicinal substance allergy status; Z86.0101 Personal history of adenomatous and serrated colon polyps; Z90.49 Acquired absence of other specified parts of digestive tract; Z80.0 Family history of malignant neoplasm of digestive organs
CPT/HCPCS: 00750; 36415; 80048; 83735; 84100; 85025; 94762; A9270; C1781; J0131; J0690; J1100; J1171; J1644; J1650; J2003; J2405; J2470; J2704; J3010; J3475; J3490; J7121

== ENCOUNTER 2024-07-24 13:45 | Emergency (ER) | payer MEDICARE, OTHER ==
[~2024-07-24] VITALS: Ht 157.5 cm; Wt 83.4 kg
[~2024-07-24 13:45] MED LIST changes: +CALCIUM 500-VI1 EAC6 PO; +DILAUDID4 MG PO; -LACTATED RINGER'S 1,000 ML IV SCH; +TYLENOL EXTRA500 MG PO; +VITAMIN B12500 MCG PO
--- OUTSIDE RECORDS SUMMARY | 2024-07-24 13:52 | XMS ---
PreManage Notification: Tati PINTO Security Mohs Surgeon Events No recent Security Events currently on file CRITERIA MET - [facility] - 2 Visits in 30 Days CARE PROVIDERS There are no care providers on record at this time. Brandon has no Care Guidelines for this patient. Efren VISIT COUNT (12 MO.) 4 [facility] Faith Monroy ([place]) TOTAL 5 NOTE: Visits indicate total known visits. ED/C VISIT TRACKING (12 MO.) 07/24/2024 13:45 [facility] [place] TYPE: Emergency COMPLAINT: - ABDOMINAL PAIN 07/23/2024 15:44 [facility] [place] TYPE: Emergency COMPLAINT: - POST OP PROBLEM 03/17/2024 15:01 [facility] [place] TYPE: Emergency COMPLAINT: - DIARRHEA 12/05/2023 02:53 [facility] [place] TYPE: Emergency COMPLAINT: - SOB DIAGNOSES: - Acquired absence of both cervix and uterus - Acquired absence of other genital organ(s) - Acquired absence of other specified parts of digestive tract - Acute upper respiratory infection, unspecified - Allergy status to analgesic agent - Allergy status to narcotic agent - Allergy status to other antibiotic agents - Allergy status to other drugs, medicaments and biological substances - Allergy status to penicillin - Allergy status to sulfonamides - Allergy to other foods - Hormone replacement therapy - USP (current) use of aspirin - Other manager long term care (current) drug therapy - Other nonmedicinal substance allergy status - Personal history of other malignant neoplasm of large intestine - Personal history of other malignant neoplasm of stomach - Shortness of breath [facility] [place] [facility] DIAGNOSES: - Viral infection, unspecified - Flu Like Symptoms - DOS SANTOS, chest congestion - Headache (Adult - Recurrent Or Known Dx Migraines) - Nasal Congestion INPATIENT VISIT TRACKING (12 MO.) 05/12/2024 09:55 [facility] TYPE: Observation COMPLAINT: - REPAIR EPIGASTRIC INCISIONAL HERNIA W/MESH DIAGNOSES: - Acquired absence of other specified parts of digestive tract - Allergy status to analgesic agent - Allergy status to narcotic agent - Allergy status to other antibiotic agents - Allergy status to other drugs, medicaments and biological substances - Allergy status to penicillin - Allergy status to sulfonamides - Allergy to other foods - Body mass index [BMI] 34.0-34.9, adult - Family history of malignant neoplasm of digestive organs - Gastro-esophageal reflux disease without esophagitis - Hypothyroidism, unspecified - USP (current) use of aspirin - Major depressive disorder, recurrent, moderate - Obesity, unspecified - Other and unspecified ventral hernia with obstruction, without gangrene - Other mcc (current) drug therapy - Other nonmedicinal substance allergy status - Umbilical hernia with obstruction, without gangrene - PERSONAL HISTORY OF ADENOMATOUS AND SERRATED COLON 03/17/2024 17:[address] [facility] [place] TYPE: Medical Surgical COMPLAINT: - PARTIAL SMALL BOWEL OBSTRUCTION DIAGNOSES: - Acquired absence of both cervix and uterus - Acquired absence of both cervix and uterus - Acquired absence of other genital organ(s) - Acquired absence of other genital organ(s) - Acquired absence of other organs - Acquired absence of other organs - Acquired absence of other specified parts of digestive tract - Acquired absence of other specified parts of digestive tract - Allergy status to narcotic agent - Allergy status to narcotic agent - Allergy status to other antibiotic agents - Allergy status to other antibiotic agents - Allergy status to other drugs, medicaments and biological substances - Allergy status to other drugs, medicaments and biological substances - Allergy status to penicillin - Allergy status to penicillin - Allergy status to sulfonamides - Allergy status to sulfonamides - Allergy to other foods - Allergy to other foods - Dehydration - Dehydration - Depression, unspecified - Depression, unspecified - Gastro-esophageal reflux disease without esophagitis - Gastro-esophageal reflux disease without esophagitis - Hormone replacement therapy - Hormone replacement therapy - Hypomagnesemia - Hypomagnesemia - Hypothyroidism, unspecified - Hypothyroidism, unspecified - Incisional hernia with obstruction, without gangrene - Incisional hernia with obstruction, without gangrene - manager terminal (current) use of aspirin - manager terminal (current) use of aspirin - Other manager long term care (current) drug therapy - Other manager long term care (current) drug therapy - Other nonmedicinal substance allergy status - Other nonmedicinal substance allergy status - Other specified postprocedural states - Other specified postprocedural states - Personal history of other malignant neoplasm of large intestine - Personal history of other malignant neoplasm of large intestine - Unspecified cirrhosis of liver - Unspecified cirrhosis of liver - Unspecified osteoarthritis, unspecified site - Unspecified osteoarthritis, unspecified site - Viral intestinal infection, unspecified [email or web address]
[2024-07-24] MEDS ORDERED: ondansetron HCL 4 MG/2 ML VIAL IV ONE (16:30)
[2024-07-24 16:49] LABS: BASOPHILS 0.7 % (0-2); EOSINOPHILS 2.5 % (0-6); HEMATOCRIT 44.8 % (35.0-50.0); HEMOGLOBIN 15.2 g/dL (12.0-18.0); LYMPHOCYTES 20.5 % (24-44); MCH 28.4 (27-36); MCHC 33.9 g/dl (30-36); MCV 83.7 fl (81-99); MONOCYTES 9.5 % (0-12); NEUTROPHILS 66.8 % (39-80); PLATELET COUNT 169 K/uL (140-440); RBC 5.35 M/ul (4.3-5.7); RDW 14.4 (10.5-15.0)
[2024-07-24 17:06] LABS: BILIRUBIN, URINE POSITIVE (negative); BLOOD/HGB, URINE NEGATIVE (Negative); KETONE, URINE NEGATIVE (Negative); LEUK ESTERASE, URINE NEGATIVE (negative); NITRITE, URINE NEGATIVE (negative); PH, URINE 6.5 (5-7)
[2024-07-24 18:11] LABS: ALBUMIN 3.2 g/dL (3.4-5.0); ALBUMIN/GLOBULIN RATIO 0.74 (1.1-2.4); ANION GAP 11.5 (7-21); BILIRUBIN, TOTAL 0.6 mg/dL (0.2-1.0); BUN/CREATININE RATIO 20.58 (6.0-28.6); CALCIUM 8.6 mg/dL (8.5-10.1); CREATININE, SERUM 0.68 mg/dL (0.55-1.02); MAGNESIUM 2.1 mg/dL (1.8-2.4); POTASSIUM 4.5 mmol/L (3.5-5.1); PROTEIN, TOTAL 7.5 g/dL (6.4-8.2)
[2024-07-24 19:05] VITALS: BP 126/73
== END 2024-07-24 19:05 | disposition home or self-care (01) ==
LOC: ED 13:45
PROVIDERS: Emergency Medicine
DX: L76.34 Postprocedural seroma of skin and subcutaneous tissue following other procedure (principal); Z88.1 Allergy status to other antibiotic agents; Z88.0 Allergy status to penicillin; Z88.2 Allergy status to sulfonamides; Z88.5 Allergy status to narcotic agent; Z88.8 Allergy status to other drugs, medicaments and biological substances; Z88.9 Allergy status to unspecified drugs, medicaments and biological substances; Z88.6 Allergy status to analgesic agent; Z91.018 Allergy to other foods; Z91.011 Allergy to milk products
CPT/HCPCS: 36415; 74177; 80053; 81003; 83690; 83735; 85025; 99284-25; J2405; Q9967

== ENCOUNTER 2024-08-06 08:06 | Day surgery (SDC) | payer MEDICARE, OTHER ==
[2024-08-04 14:53] VITALS: BP 108/63
[~2024-08-06] VITALS: Ht 157.5 cm; Wt 82.3 kg
--- NOTE | ~2024-08-06 | OR ---
[facility] [address], [place] [address] Draft DATE OF OPERATION: 08/06/2024 SURGEON: Alfred Bergeron DO PREOPERATIVE DIAGNOSIS: Abdominal wall mass. POSTOPERATIVE DIAGNOSIS: Abdominal wall mass with 200 mL of abdominal wall hematoma. PROCEDURE PERFORMED: Incision, evacuation, debridement and drainage of the abdominal wall hematoma. ANESTHESIA: General. ESTIMATED BLOOD LOSS: Approximately 200 mL of old blood and clot. DRAINS: Include Mason-Haro drain x1. COMPLICATIONS: None. DESCRIPTION OF PROCEDURE: The patient was brought to the operating room, placed in the supine position After induction of general endotracheal anesthesia, the abdomen was then sterilely shaved, prepped and draped in the usual fashion. previous midline incision, skin was incised with a scalpel. Dissection was continued down through to the areas of subcutaneous tissue hematoma was identified, it was entered sharply. evacuation of old clot and blood was noted, this was suctioned and irrigated to clear. The cavity was . No evidence of further tracking was noted. It should be noted that both cultures of aerobic and anaerobic were taken at the at the time of entering the capsule. After this has been irrigated fully and cleared and clean, decision to proceed was then made. After satisfactory dissection, a 10 mm Mason-Haro drain was placed in the cavity itself. The drain was secured on the anterior abdominal wall with 2-0 nylon. The drain was left in place in the cavity. The entrance site of the cavity was then closed with 3-0 Vicryl loosely. The subcutaneous tissue was . The subcutaneous tissue was then closed with interrupted 3-0 PATIENT NAME: Tati PINTO OPERATIVE REPORT DATE OF : 50 REPORT #: [id number] PHYSICIAN: ALFRED BERGERON DO PCP: NIMA JUNG MD REPORT IS CONFIDENTIAL AND NOT TO BE RELEASED WITHOUT AUTHORIZATION [facility] [address] [place] [id number] Draft Vicryl and skin was closed with ivelisse. Sterile dressing was applied. The patient tolerated the procedure well, went to recovery room in satisfactory condition. DO YAIR Martin/GILLES /[id number] Copies: ~ PATIENT NAME: Tati PINTO OPERATIVE REPORT DATE OF : 50 REPORT #: [id number] PHYSICIAN: ALFRED BERGEORN DO PCP: NIMA JUNG MD REPORT IS CONFIDENTIAL AND NOT TO BE RELEASED WITHOUT AUTHORIZATION
--- NOTE | 2024-08-06 07:48 | NUR ---
SPOKE WITH DR. MILLER REGARDING LABS ORDERED AND PTT RESULT OF 26.2. RECEIVED VERBAL ORDER TO DC PT/INR. UPDATED [facility].
[~2024-08-06 08:06] MED LIST changes: +ADULT LOW DOSE81 MG PO; +CEFAZOLIN SODIUM 2 GM/20 ML SYR IV SCH; +CENTRUM ADULTS1 EACH PO; +COLESTID1 GM PO; +HEParin SOD (PORCINE) 5,000 UNIT/ML SDV SUB-Q SCH; +IBLOOD GLUCOSE TEST STRIP 1 EA TEST VI PRN; +IBU-200200 MG PO; +LACTATED RINGER'S 1,000 ML IV SCH; +LIDOCAINE HCL 1% 5 ML SDV INJ ONE; +VALTREX500 MG PO
[2024-08-06 08:40] VITALS: BP 119/57
[2024-08-06] MEDS ORDERED: propofoL 200 MG/20 ML VIAL ONE (09:09)
[2024-08-06] MEDS ORDERED: LIDOCAINE HCL 2% 5 ML SDV ONE (09:09)
[2024-08-06] MEDS ORDERED: ROCURONIUM BROMIDE 50 MG/5 ML SYR ONE (09:09)
[2024-08-06] MEDS ORDERED: fentaNYL citrate 100 MCG/2 ML VIAL ONE (09:10)
[2024-08-06] MEDS ORDERED: MIDAZOLAM HCL 2 MG/2 ML VIAL ONE (09:29)
[2024-08-06] MEDS ORDERED: BUPIVACAINE HCL 0.25% 50 ML MDV ONE (09:40)
[2024-08-06] MEDS ORDERED: MIDAZOLAM HCL 2 MG/2 ML VIAL IV PRN (09:45)
[2024-08-06] MEDS ORDERED: IBLOOD GLUCOSE TEST STRIP 1 EA TEST VI PRN (09:45)
[2024-08-06] MEDS ORDERED: NALOXONE HCL 0.4 MG SYR IV PRN (09:45)
[2024-08-06] MEDS ORDERED: ondansetron HCL 4 MG/2 ML VIAL IV PRN (09:45)
[2024-08-06] MEDS ORDERED: fentaNYL citrate 50 MCG/ML SDV IV PRN (09:45)
[2024-08-06] MEDS ORDERED: ePHEDrine sulfate 50 MG/ML AMP ONE (10:07)
[2024-08-06] MEDS ORDERED: SUGAMMADEX SODIUM 200 MG/2 ML ML ONE (10:20)
[2024-08-06] MEDS ORDERED: LACTATED RINGER'S 1,000 ML IV ONE (10:21)
[2024-08-06] MEDS ORDERED: ACETAMINOPHEN 1,000 MG/100 ML VIAL ONE (10:30)
--- NOTE | 2024-08-06 11:01 | NUR ---
08/06/24 1101 Chastity Miranda 1038-PT ARRIVES TO PACU VIA STRETCHER, RESTING SEMI FOWLERS, PT NOT RESPONISVE TO STIMULI, RESTING W/ EYES CLOSED, VSS ON 6L VIA MASK, RR EVEN AND UNLABORED. 1058-PT AWAKENS ON OWN, TITRATED TO RA, VS REMAIN STABLE. PT DENIES PAIN OR NAUSEA.
[2024-08-06 11:15] VITALS: BP 150/67
--- NOTE | 2024-08-06 11:15 | NUR ---
PT ARRIVED BACK TO DS ON RA, AAOX3, AND ANSWERING QUESTIONS APPROPRAITELY. PT REPORTING NAUSEA FROM MOVEMENT OF BED FROM PACU TO DS ROOM. PUPPY TRAINER ADMINISTERED ANTINAUSEA MEDS PER EMAR. REPORT RECEIVED FROM PUPPY TRAINER WELL SURGICAL SITES VISUALIZED. PT NOTED WITH ABD BINDER. ABD BINDER OPENED AND ANGELA DRAIN PRESENT WITH SCANT AMTS OF SANGUINEOUS DRAIANGE NOTED. MIDLINE SURGICAL INCISION WITH DRSG IN PLACE AND SMALL AMTS OF SANGUINEOUS DRAIANGE SHADOWING. DRESSING STILL INTACT. NOTED SPLIT GAUZE SPONGE AROUND ANGELA DRAIN INSERTION SITE IN LLQ OF ABD. DRSG IS CDI. ABD BINDER RESECURED. IV SITE ASSESSED. IV FLUIDS COMPLETED. IV SL'D. VS TAKEN. PT REPORTS PAIN 8/10 IN ABD AREA. PTS AND SON IN ROOM UPON RETURN AND REMAIN AT PTS BEDSIDE. PT PROVIDED WITH ALCOHOL SWAB TO HELP FURTHER IMPROVE NAUSEA WELL EMESIS BAG IN CASE OF NEED TO VOMITT. HOB ELEVATED TO APPROX 454 DEGREES. ICE WATER, ADAN CRACKERS, AND CHOCOLATE PUDDING PROVIDED. ALL QUESTIONS ANSWERED. BED IN LOW POSITION, WHEELS LOCKED, BILAT RAILS IN PLACE. CALL LIGHT WITHIN REACH.
--- NOTE | 2024-08-06 11:48 | NUR ---
1140-RECEIVED CALL FROM LAB WITH REPROTS OF GRAM STAIN RESULTS. RESULTS SHOW FEW WBC'S AND NO ORGANISMS. 1148-DR. MILLER NOTIFIED VIA PHONE OF GRAM STAIN RESULTS. ALSO RECEIVED VERBAL ORDERS FOR NORCO 7.5/325MG TABS, 1-2 TABS PO Q4H PRN POST-OP PAIN. ORDERS ENTERED INTO VIAP.
[2024-08-06 12:15] VITALS: BP 139/65
[2024-08-06] MEDS ORDERED: HYDROCODONE/ACETA 7.5/325 TAB PO PRN (12:15)
--- NOTE | 2024-08-06 12:40 | NUR ---
1215-INTO PTS ROOM FOR ROUTINE REASSESSMENT. VS TAKEN. IV SITE ASSESSED. SURGICAL SITES VISUALIZED AND NO ACUTE CHANGES NOTED. PTS SON AND REMAIN IN ROOM WITH HER. PT NOTED TO HAVE EATEN ALL SNACKS AND REPORTS IMPROVEMENT IN NAUSEA. ICE WATER REFILLED. PT REPORTS PAIN IMPROVED WITH REST AND REPOSITIONING AND NOW RATES PAIN AT 6/10. 1225-PO PAIN MEDS GIVEN FOR PAIN RELIEF. 1235-PT REPORTING URGE TO VOID. PT ASSISTED TO SITTING ON EOB AND THEN TO STANDING POSITION. PT AMBULATED TO RESTROOM WITH MIN ASSIST FOR STABILITY AND SAFETY BY THIS RN. PT ABLE TO VOID APPROX 400 ML OF CLR, YELLOW URINE. 1240-PT BACK TO ROOM AND LAYING IN BED. ANGELA DRAIN EMPTIED. PT AND SPOUSE PROVIDED TEACHING WITH THIS. PT AND SPOUSE REPORT THEY FEEL THEY WILL BE ABLE TO DO THIS AT HOME.
--- NOTE | 2024-08-06 12:45 | NUR ---
CALLED AND SPOKE WITH DR. MILLER REGARDING NEED FOR DC ORDERS AND INSTRUCTIONS FOR PT. RECEIVED THE FOLLOWING: RESUME REGULAR ACTIVITY TOLERATED BUT NO LIFTING ANYTHING GREATER THAN 5 POUNDS, EMPTY CHE DRAIN DAILY AND NEEDED IF FULL, BED BATHS UNTIL FRIDAY, FRIDAY PT MAY START SHOWERING WITH WATER HITTING BACK, NO WATER DIRECTLY TO WOUNDS, WOUNDS NOT TO BE SUBMERGED IN WATER, PT TO BE SEEN IN OFFICE IN ONE WEEK, DRESSING TO BE CHANGED DAILY.
[2024-08-06 13:15] VITALS: BP 149/67
[2024-08-06] MEDS ORDERED: HYDROCODON-ACE1 EA11 PO (13:15)
[2024-08-06] MEDS ORDERED: CEPHALEXIN500 MG PO (13:16)
[2024-08-06] MEDS ORDERED: ONDANSETRON HCL4 MG PO (13:17)
--- NOTE | 2024-08-06 13:40 | NUR ---
1315-INTO PTS ROOM FOR ROUTINE REASESSMENT. VS TAKEN. IV SITE ASSESSED. PT REPORTS NAUSEA RESOLVED AND PAIN IS IMPROVED. PT RATING PAIN 4/10 AND REPORTS THAT TO BE TOLERABLE. SURGICAL SITES VISUALIZED AND NO ACUTE CHANGES NOTED. ANGELA DRAIN W/SCANT AMTS OF SANGUINEOUS DRAINAGE PRESENT. PT ASSISTED W/SAFETY PINNING DRAIN TO INSIDE OF SHIRT. PTS SPOUSE AND SON REMAIN IN ROOM AT BEDSIDE. PT DRESSED FOR DC. 1325-VERBAL AND WRITTEN DC EDUCATION PROVIDED TO PT AND HER SPOUSE. PT ALSO PROVIDED WITH RECORD SHEET TO RECORD DATE/TIME/AMT EMPTIED FROM ANGELA DRAIN. ALL QUESTIONS ANSWERED. F/U APPT FOR 08/09/24 AT 0815 PROVIDED. PT ALSO PROVIDED WOUND CARE SUPPLIES UNTIL F/U APPT. PT AND VERBALIZE UNDERSTANDING. 1340-IV REMOVED. TIP APPEARS INTACT. PRESSURE DRSG APPLIED WITH GAUZE AND COBAN. SPOUSE LEFT TO PULL CAR AROUND TO FRONT FOR DC.
--- NOTE | 2024-08-06 13:45 | NUR ---
PT DISCHARGED FROM DS VIA WC TO PASSENGER SIDE OF SPOUSES VEHICLE. ALL PERSONAL BELONINGS TAKEN WITH PT.
[2024-08-06] MEDS ORDERED: SEVOFLURANE 250 ML BTL INH ONE (15:29)
--- NOTE | 2024-08-06 16:51 | NUR ---
PT DISCHARGED FROM DS VIA WC TO PASSENGER SIDE OF HUSBANDS VEHICLE. ALL PERSONAL BELONGINGS TAKEN WITH PT.
== END 2024-08-06 13:45 | disposition home or self-care (01) ==
LOC: DS 08:06
PROVIDERS: ATTEND Surgery
PROC: 0W9F00Z Drainage of Abdominal Wall with Drainage Device, Open Approach (ICD-10-PCS; principal; 2024-08-06 11:00)
DX: S30.1XXA Contusion of abdominal wall, initial encounter (principal); X58.XXXA Exposure to other specified factors, initial encounter; R73.03 Prediabetes; Z79.899 Other long term (current) drug therapy; Z79.82 Long term (current) use of aspirin; Z88.5 Allergy status to narcotic agent; Z88.8 Allergy status to other drugs, medicaments and biological substances; Z88.1 Allergy status to other antibiotic agents; Z88.0 Allergy status to penicillin
CPT/HCPCS: 00400; 85610; 87070; 87075; 87205; A9270; J0131; J0690; J1644; J2003; J2250; J2405; J2704; J3010; J3490; J7121